=== PATIENT | male | born 1940 | race Caucasian/White ===

== ENCOUNTER 2017-06-07 11:16 | Inpatient (IN) | payer MEDICARE, MEDICAID ==
[2017-06-07] MEDS ORDERED: Sodium Chloride 0.9% 1,000 ML IV ONE (11:39)
--- NOTE | 2017-06-07 11:45 | ED Physician Chart ---
ED Chief Complaint/HPI - Patient Information Date Seen:: 06/07/17 Time Seen:: 11:25 Chief Complaint:: Scrotal Redness and Swelling History of Present Illness:: onset x 3 days of scrotal swelling and redness; no trauma, H/As, S/T, neck pain , C/P, SOB, Abd. Pain, A/N/V/D/C, fever, chills, or urinary s/s; pt's last tetanus shot: < 5 years; UTD; pt denies scrotal pain, hip pain, or flank pain Allergies:: Allergies Allergy/AdvReac Type Severity Reaction Status Date / Time No Known Allergies Allergy Verified 06/07/17 11:22 Vitals:: Vital Signs - 8 hr 06/07/17 11:22 Temp 99.6 F HR 103 RR 16 BP 135/97 O2 Sat % 94 Historian:: Patient, EMS Review:: Nurse's Note Reviewed, EMS run form Reviewed ED Review of Systems - Review of Systems General/Constitutional: No fever, No chills, No weight loss, No weakness, No diaphoresis, No edema, No loss of appetite Skin: No skin lesions, No rash, No bruising Head: No headache, No light-headedness Eyes: No loss of vision, No pain, No diplopia ENT: No earache, No nasal drainage, No sore throat, No tinnitus Neck: No neck pain, No swelling, No thyromegaly, No stiffness, No mass noted Cardio Vascular: No chest pain, No palpitations, No PND, No orthopnea, No edema Pulmonary: No SOB, No cough, No sputum, No wheezing GI: No nausea, No vomiting, No diarrhea, No pain, No melena, No hematochezia, No constipation, No hematemesis G/U: No dysuria, No frequency, No hematuria, No nacturia Musculoskeletal: No bone or joint pain, No back pain, No muscle pain Endocrine: No polyuria, No polydipsia Psychiatric: No prior psych history, No depression, No anxiety, No suicidal ideation, No homicidal ideation, No auditory hallucination, No visual hallucination Hematopoietic: No bruising, No lymphadenopathy Allergic/Immuno: No urticaria, No angioedema Neurological: No syncope, Focal symptoms, No weakness, No paresthesia, No headache, No seizure, No dizziness, No confusion, No vertigo ED Past Medical History - Past Medical History Obtainable: Yes Past Medical History: HTN, CVA/TIA, Dyslipidemia Family History: Diabetes Melitus, HTN Social History: Non Smoker, No Alcohol, No Drug Use, Single, Care Facility Surgical History: None Psychiatricy History: None Medication: Reviewed ED Physical Exam - Physical Examination General/Constitutional: Awake, Well-developed, well-nourished, Alert, No distress, GCS 15, Non-toxic appearing, Ambulatory Head: Atraumatic Eyes: Lids, conjuctiva normal, PERRL, EOMI Skin: Nl inspection, No rash, No skin lesions, No ecchymosis, Well hydrated, No lymphadenopathy ENMT: External ears, nose nl, TM canals nl, Nasal exam nl, Lips, teeth, gums nl , Oropharynx nl, Tonsils nl Neck: Nontender, Full ROM w/o pain, No JVD, No nuchal rigidity, No bruit, No mass, No stridor Respiratory: Nl effort/Exclusion, Clear to Auscultation, No Wheeze/Rhonchi/Rales Cardio Vascular: RRR, No murmur, gallop, rubs, NL S1 S2, Carotid/Femoral/Distal pulses equal bilaterally GI: No tenderness/rebounding/guarding, No organomegaly, No hernia, Normal BS's, Nondistended, No mass/bruits, No McBurney tenderness : No CVA tenderness Other comments:: + Scrotal erythema and swelling cw Cellulitis Extremities: No tenderness or effusion, Full ROM, normal strength in all extremities, No edema, Normal digits & nails Neuro/Psych: Alert/oriented, DTR's symmetric, Normal sensory exam, Normal motor strength, Judgement/insight normal, Mood normal, Normal gait, No focal deficits Misc: Normal back, No paraspinal tenderness ED Labs/Radiology/EKG Results - Lab Results Comments:: BUN: 30; LA: 2.27 - Radiology Results Comments:: U/S: + hydroceles; + epididymitis; - EKG Interpretations EKG Time:: 12:51 Rate & Rhythm: 91; NSR Pace: LAD Comments:: non-specific st-t changes ED Septic Shock - . Is Septic Shock (SBP<90, OR Lactate>4 mmol\L) present?: No - <6hrs of presentation: Vital Signs: Vital Signs - 8 hr 06/07/17 11:22 Temp 99.6 F HR 103 RR 16 BP 135/97 O2 Sat % 94 ED Reassessment (Disposition) - Reassessment Reassessment Condition:: Improved - Diagnosis Diagnosis:: Dx: Dehydration; Cellulitis; Sepsis; Epididymitis - Aftercare/Follow up Instructions Aftercare/Follow-Up Instructions:: Counseled pt regarding lab results/diagnosis & need follow up, Counseled pt & family regarding lab results/diagnosis & need follow up - Patient Disposition Discharge/Transfer:: Acute Care w/in this hosp Accepting Physician:: Dr. Jones Time Called:: 1330 Time Responded:: 13:30 Admitted to:: Med/Surg Spoke to:: Dr. Jones Admitting Medical Physician:: Dr. Jones Condition at Disposition:: Stable, Improved
[2017-06-07 12:20] LABS: % BASOPHILS 0.1 % (0.0-2.0); % EOSINOPHILS 0.2 % (0.0-5.0); % LYMPHOCYTES 6.7 % (20.0-50.0); % MONOCYTES 8.4 % (2.0-10.0); % NEUTROPHILS 84.6 % (40.0-80.0); HEMATOCRIT 41.3 % (41.0-60); HEMOGLOBIN 13.6 gm/dL (12-16); LYMPHOCYTE ABSOLUTE 0.5 Th/cmm (1.5-3.0); MEAN CELL VOLUME 86.8 fl (80-99); MEAN CORPUSCULAR HEMOGLOBIN 28.6 pg (27.0-31.0); MEAN CORPUSCULAR HGB CONC 32.9 pg (28.0-36.0); MEAN PLATELET VOLUME 8.4 fl; MONOCYTE ABSOLUTE 0.7 Th/cmm (0.3-1.0); NEUTROPHILE ABSOLUTE 6.8 Th/cmm (1.8-8.0); PLATELET COUNT 287 Th/cmm (150-400); RED BLOOD COUNT 4.76 Mil/cmm (3.80-5.80); RED CELL DISTRIBUTION WIDTH 12.4 % (11.5-20.0)
[2017-06-07 12:21] LABS: INR 1.06 (0.5-1.4)
[2017-06-07 12:24] LABS: ALB/GLOB RATIO 1.3 (1.0-1.8); ALBUMIN 4.3 gm/dL (4.2-5.5); ALKALINE PHOSPHATASE 93 U/L (34-104); ANION GAP 15.1 (7.0-16.0); BILIRUBIN,TOTAL 0.5 mg/dL (0.3-1.0); BUN - UREA NITROGEN 30 mg/dL (7-25); CALCIUM SERUM 8.9 mg/dL (8.6-10.3); CARBON DIOXIDE 22.6 mEq/L (21.0-31.0); CHLORIDE 104 mEq/L (98-107); CREATININE - SERUM 1.5 mg/dL (0.7-1.3); CREATININE KINASE 387 U/L (30-223); GLUCOSE 112 mg/dL (70-105); POTASSIUM SERUM 3.7 mEq/L (3.5-5.1); SGOT 35 U/L (13-39); SGPT/ALT 35 U/L (7-52); SODIUM SERUM 138 mEq/L (136-145); TOTAL PROTEIN,SERUM 7.5 gm/dL (6.0-8.3)
[2017-06-07 12:52] LABS: URINE MICROSCOPIC INDICATED? YES; URINE SOURCE MIDSTREAM
[2017-06-07] MEDS ORDERED: cefTRIAXone 1 GM in Sodium Chloride 0.9% 50 ML IV ONE (12:52)
[2017-06-07 12:55] LABS: URINE BILIRUBIN SMALL (NEGATIVE); URINE BLOOD SMALL (NEGATIVE); URINE GLUCOSE (UA) NEGATIVE (NEGATIVE); URINE KETONE TRACE mg/dL (NEGATIVE); URINE LEUKOCYTE ESTERASE NEGATIVE (NEGATIVE); URINE NITRATE NEGATIVE (NEGATIVE); URINE PROTEIN 30 mg/dL (NEGATIVE); URINE UROBILINOGEN 0.2 E.U./dL (0.2 - 1.0)
[2017-06-07 12:56] LABS: URINE CLARITY HAZY (CLEAR); URINE COLOR YELLOW
[2017-06-07 13:00] LABS: URINE BACTERIA OCCASIONAL /hpf (NONE SEEN); URINE EPITHELIAL CELLS FEW /lpf (FEW); URINE RBC 0-2 /hpf (0-5); URINE WBC 0-2 /hpf (0-5)
--- NOTE | 2017-06-07 14:01 | Diagnostic Imaging Report ---
Portable chest x-ray History: Pain Allowing for portable technique the heart size is normal. No focal pulmonary parenchymal processes. No hilar or mediastinal abnormalities. Old right rib fractures noted. Impression: No acute abnormalities.
--- NOTE | 2017-06-07 14:10 | Diagnostic Imaging Report ---
Testicular/scrotal ultrasound HISTORY: Swelling The right testis is small (2.9 x 1 0.9 to 2.4 cm. No focal parenchymal lesions. Normal testicular vascular flow. Right epididymis appears normal. There appears to be generalized soft tissue swelling about the right hemiscrotum. There is a mild to moderate complex right hydrocele. In addition, there appears to be abnormal heterogeneous density extending into the right hemiscrotum that appears to exhibit motion. Exact etiology uncertain. A hernia cannot be excluded. A CT scan would provide additional assessment and evaluation. The left testis a small (2.9 x 2.4 x 1.7 cm). Complex moderate hydrocele noted. As on the right side, increased density noted within the tissues of the left hemiscrotum consistent with swelling. Also noted is heterogeneous density that appears to exhibit motion and extends into the left hemiscrotum. Etiology uncertain. This may be related to bowel and herniation. IMPRESSION: 1. Generalized soft tissue swelling about the cutaneous and subcutaneous tissues of the scrotum. 2. Moderate complex bilateral hydroceles. Findings may be associated with inflammatory sequelae. 3. Heterogeneous density that appears to extend into the right and left hemiscrotal areas with motion. Exact etiology uncertain. Changes may be related to bowel and associated with hernias. A CT scan would provide additional assessment.
[2017-06-07] MEDS ORDERED: Morphine Sulfate 2 mg/mL 1mL Syr IV PRN (20:21)
[2017-06-07] MEDS ORDERED: Piperacillin Sodium/Tazobact 3.375 gm Vial IV ONE (21:20)
[2017-06-08 06:50] LABS: % BASOPHILS 0.2 % (0.0-2.0); % EOSINOPHILS 0.1 % (0.0-5.0); % LYMPHOCYTES 10.4 % (20.0-50.0); % MONOCYTES 10.7 % (2.0-10.0); % NEUTROPHILS 78.6 % (40.0-80.0); HEMOGLOBIN 12.2 gm/dL (12-16); LYMPHOCYTE ABSOLUTE 0.7 Th/cmm (1.5-3.0); MEAN CORPUSCULAR HGB CONC 33.3 pg (28.0-36.0); MEAN PLATELET VOLUME 8.2 fl; MONOCYTE ABSOLUTE 0.8 Th/cmm (0.3-1.0); NEUTROPHILE ABSOLUTE 5.7 Th/cmm (1.8-8.0); PLATELET COUNT 240 Th/cmm (150-400); RED BLOOD COUNT 4.21 Mil/cmm (3.80-5.80); RED CELL DISTRIBUTION WIDTH 12.6 % (11.5-20.0); WHITE BLOOD COUNT 7.2 Th/cmm (4.8-10.8)
[2017-06-08 07:01] LABS: HEMATOCRIT 36.7 % (41.0-60)
[2017-06-08 07:03] LABS: ANION GAP 12.1 (7.0-16.0); BUN - UREA NITROGEN 29 mg/dL (7-25); CALCIUM SERUM 8.3 mg/dL (8.6-10.3); CARBON DIOXIDE 23.4 mEq/L (21.0-31.0); CHLORIDE 106 mEq/L (98-107); CHOLESTEROL 169 mg/dL (<200); CREATININE - SERUM 1.5 mg/dL (0.7-1.3); GLUCOSE 93 mg/dL (70-105); HDL -HIGH DENSITY LIPOPROTEIN 56 mg/dL (23-92); POTASSIUM SERUM 3.5 mEq/L (3.5-5.1); SODIUM SERUM 138 mEq/L (136-145); TRIGLYCERIDES 115 mg/dL (<150)
[2017-06-08] MEDS: Potassium Chloride 10 mEq ER Tab PO SCH (09:36)
--- NOTE | 2017-06-08 13:19 | Consultation ---
DATE OF CONSULTATION: 06/07/2017 REFERRING PHYSICIAN: Dr. Jones. REASON FOR CONSULTATION: Scrotal swelling and cellulitis. HISTORY OF PRESENT ILLNESS: The patient is 76-year-old male with a past medical history of hypertension, CVA, dyslipidemia, brought to the nursing facility for swelling, redness, and pain of scrotum, it was on the right side. The patient denies any fever or chills. On initial evaluation, the patient's temperature was 99.6 degrees Fahrenheit, it went up to 101.1 degree Fahrenheit. The patient's WBC around 8000. Lactic acid was also elevated to 2.27. Urinalysis showed mild leukoesterase and occasional bacteria. The patient is noncompliant and not giving appropriate history. The patient was started on vancomycin and Zosyn and Infectious Disease consultation was called to co-manage the case. PAST MEDICAL HISTORY: Includes CVA, hypertension, and dyslipidemia. ALLERGIES: NKDA. MEDICATIONS: As per medication reconciliation sheet. Antibiotic-morales, the patient is receiving vancomycin and Zosyn. FAMILY HISTORY: Diabetes mellitus and hypertension. SOCIAL HISTORY: The patient lives at nursing facility. No history of smoking, alcohol, or drug use. REVIEW OF SYSTEMS: GENERAL: The patient has a history of fever, no chills. HEENT: No diplopia, no photophobia, no sore throat. RESPIRATORY: No cough, no shortness of breath. CARDIOVASCULAR: No chest pain or palpitation. GASTROINTESTINAL: No nausea, no vomiting, no diarrhea, no constipation. GENITOURINARY: No dysuria. No hematuria. The patient has scrotal swelling with tenderness. MUSCULOSKELETAL: No muscle pain, no joint pain. NEUROLOGIC: No headache, no dizziness, no focal weakness. PHYSICAL EXAMINATION: VITAL SIGNS: Shows temperature is 99.4 degrees Fahrenheit, T-max is 101.1 degrees Fahrenheit, pulse 97, respirations 18, blood pressure 134/81, oxygen saturation 97%. GENERAL: The patient is comfortable, lying in the bed. Not in acute distress. HENT: Head is normocephalic, atraumatic. Oral cavity moist, pink tongue. EYES: No pallor, no icterus. PERRLA, EOMI. NECK: Supple, no JVD, no carotid bruit. Trachea in midline. CHEST: Bilateral breath sounds. No crackles or wheezing. HEART: S1, S2 within normal limit. Regular rhythm. No murmur, no gallop. ABDOMEN: Soft, nontender, nondistended. Bowel sounds present. EXTREMITIES: No cyanosis, no clubbing, no edema. NEUROLOGIC: Alert, awake, oriented x 3. Not cooperative, was confused. LABORATORY: Reviewed. WBC 8,000, Hb 13.6 platelets 287,000. Creatinine 1.5. UA Nitrite negative, leukoesterase negatuve. Scrotal US reviewed. IMPRESSION: 1. Scrotal swelling, worse on the right side. 2. Renal failure. RECOMMENDATIONS: Urology consultation called for his scrotal swelliing. Antibiotic-morales, continue vancomycin, Zosyn, and Diflucan. JOB# [id number] MTDD
--- NOTE | 2017-06-08 16:22 | History and Physical ---
History of Present Illness - HPI Vital Signs: Last Vital Signs Temp 98.3 F 06/08/17 12:00 Pulse 70 06/08/17 12:00 Resp 18 06/08/17 12:00 BP 122/74 06/08/17 12:00 Pulse Ox 93 06/08/17 12:00 Family Medical History - Family Member Mother History Unknown: Yes - Medications Home Medications: Home Medication Medication Instructions Recorded Type Potassium Chloride ER [Klor-Con] 10 meq PO DAILY 06/07/17 History Temazepam [Restoril*] 15 mg PO HS PRN MDD 15 MG 06/07/17 History amLODIPine Besylate [Norvasc*] 10 mg PO DAILY 06/07/17 History aripIPRAZOLE [Abilify*] 5 mg PO DAILY 06/07/17 History - Allergies Allergies/Adverse Reactions: Allergies Allergy/AdvReac Type Severity Reaction Status Date / Time No Known Allergies Allergy Verified 06/07/17 11:22 - Lab Results All Lab Results last 24 hours: Laboratory Results - last 24 hr 06/08/17 06/08/17 06/08/17 06:15 06:15 06:15 WBC 7.2 RBC 4.21 Hgb 12.2 Hct 36.7 L D MCV 87.0 MCH 29.0 MCHC Differential 33.3 RDW 12.6 Plt Count 240 MPV 8.2 Neutrophils % 78.6 Lymphocytes % 10.4 L Monocytes % 10.7 H Eosinophils % 0.1 Basophils % 0.2 Sodium 138 Potassium 3.5 Chloride 106 Carbon Dioxide 23.4 Anion Gap 12.1 BUN 29 H Creatinine 1.5 H Est GFR ( Amer) TNP Est GFR (Non-Af Amer) TNP BUN/Creatinine Ratio 19.3 Glucose 93 Calcium 8.3 L Triglycerides 115 Cholesterol 169 LDL Cholesterol Direct 92 HDL Cholesterol 56 TSH 0.61
--- NOTE | 2017-06-08 20:58 | Consultation ---
DATE OF CONSULTATION: UROLOGY CONSULT CHIEF COMPLAINT: The patient was seen for scrotal swelling, possible cellulitis and infection. HISTORY OF PRESENT ILLNESS: The patient is a 76-year-old gentleman who was admitted for pain and swelling and possible cellulitis of the right scrotal area. He denied fever and to me he denied pain as well. He admitted that the swelling has been going on for more than 5 years without change and has not bothered him. He did not complain of any itching or skin problems, although this is the reason for the consult. The patient denies urinary problems or history of urinary tract infections. No history of bladder, prostate, kidney or testicular surgery in the past. MEDICAL HISTORY: Positive for hypertension, hyperlipidemia and history of stroke. HOME MEDICATIONS: Abilify, potassium supplement, amlodipine, and Restoril. ALLERGIES: None listed. REVIEW OF SYSTEMS: Denied fever, weight loss, headache or seizures. No chest pain, coughing or shortness of breath. No sore throat or vision changes. Denied abdominal pain, vomiting or diarrhea. Denies scrotal pain or dysuria or hematuria. No skin rashes or joint swellings by complaint. PHYSICAL EXAMINATION: GENERAL: He is awake, alert, oriented. VITAL SIGNS: Blood pressure 122/78, temperature 98.8, heart rate 64, respirations 18, saturating 99% on room air. HEAD AND NECK: Normocephalic. Trachea central. Pupils equal and reactive. No jaundice. NECK: Thyroid and lymph nodes not palpable. Carotid bruit absent. CHEST: Symmetrical. LUNGS: Clear. No rales or rhonchi. HEART: Sounds normal, in sinus rhythm, no murmur. ABDOMEN: Soft, nontender, no organomegaly, mass, or hernia. GENITALIA: Normal male. Large right hydrocele with nonpalpable testicle. Left side is normal. Testicles without masses. Penis and meatus adequate. There is a rash in the right groin underneath the scrotum that looks like a fungal infection. RECTAL: Deferred. EXTREMITIES: No edema or lymphadenopathy. LABORATORY DATA: White count 7.2, hemoglobin 12.2. Electrolytes normal. Creatinine 1.5. Lactic acid 1.9 yesterday. Urinalysis normal. Ultrasound of the scrotum was read as hydrocele with possible hernia, not able to rule out. IMPRESSION: 1. Large right hydrocele without any evidence of cellulitis or infection. This does not require any active treatment and can be observed and followed. 2. Groin skin infection, possibly a fungal lesion. Recommend antifungal cream and further treatment as per primary care or per Dermatology. 3. History of stroke. No major changes and stable. 4. History of hypertension and hyperlipidemia, well controlled. JOB# [id number]
[2017-06-09] MEDS ORDERED: Nystatin Cream 100,000 u/gm Cream 15 gm TP SCH (09:00)
[2017-06-09] MEDS: Potassium Chloride 10 mEq ER Tab PO SCH (09:59)
[2017-06-09] MEDS: Nystatin Cream 100,000 u/gm Cream 15 gm TP SCH ×5 (10:02→16:55)
--- NOTE | 2017-06-09 14:28 | Internal Medicine Prog Note ---
Internal Medicine Subjective - Subjective Service Date: 06/09/17 Patient seen and examined:: with staff Patient is:: awake, verbal Per staff patient has:: tolerating meds Internal Medicine Objective - Results Result Diagrams: 06/08/17 06:15 06/08/17 06:15 Recent Labs: Laboratory Last Values WBC 7.2 Th/cmm (4.8-10.8) 06/08/17 06:15 RBC 4.21 Mil/cmm (3.80-5.80) 06/08/17 06:15 Hgb 12.2 gm/dL (12-16) 06/08/17 06:15 Hct 36.7 % (41.0-60) L D 06/08/17 06:15 MCV 87.0 fl (80-99) 06/08/17 06:15 MCH 29.0 pg (27.0-31.0) 06/08/17 06:15 MCHC Differential 33.3 pg (28.0-36.0) 06/08/17 06:15 RDW 12.6 % (11.5-20.0) 06/08/17 06:15 Plt Count 240 Th/cmm (150-400) 06/08/17 06:15 MPV 8.2 fl 06/08/17 06:15 Neutrophils % 78.6 % (40.0-80.0) 06/08/17 06:15 Lymphocytes % 10.4 % (20.0-50.0) L 06/08/17 06:15 Monocytes % 10.7 % (2.0-10.0) H 06/08/17 06:15 Eosinophils % 0.1 % (0.0-5.0) 06/08/17 06:15 Basophils % 0.2 % (0.0-2.0) 06/08/17 06:15 PT 11.0 SECONDS (9.5-11.5) 06/07/17 11:46 INR 1.06 (0.5-1.4) 06/07/17 11:46 PTT (Actin FS) 28.2 SECONDS (26.0-38.0) 06/07/17 11:46 Sodium 138 mEq/L (136-145) 06/08/17 06:15 Potassium 3.5 mEq/L (3.5-5.1) 06/08/17 06:15 Chloride 106 mEq/L (98-107) 06/08/17 06:15 Carbon Dioxide 23.4 mEq/L (21.0-31.0) 06/08/17 06:15 Anion Gap 12.1 (7.0-16.0) 06/08/17 06:15 BUN 29 mg/dL (7-25) H 06/08/17 06:15 Creatinine 1.5 mg/dL (0.7-1.3) H 06/08/17 06:15 Est GFR ( Amer) TNP 06/08/17 06:15 Est GFR (Non-Af Amer) TNP 06/08/17 06:15 BUN/Creatinine Ratio 19.3 06/08/17 06:15 Glucose 93 mg/dL (70-105) 06/08/17 06:15 Whole Bld Lactic Acid 1.93 mmol/L (0.60-1.99) 06/07/17 14:43 Calcium 8.3 mg/dL (8.6-10.3) L 06/08/17 06:15 Total Bilirubin 0.5 mg/dL (0.3-1.0) 06/07/17 11:46 AST 35 U/L (13-39) 06/07/17 11:46 ALT 35 U/L (7-52) 06/07/17 11:46 Alkaline Phosphatase 93 U/L (34-104) 06/07/17 11:46 Creatine Kinase 387 U/L (30-223) H 06/07/17 11:46 CK-MB (CK-2) 4.3 ng/mL (0.6-6.3) 06/07/17 11:46 Troponin I 0.03 ng/mL (0.01-0.05) 06/07/17 11:46 Total Protein 7.5 gm/dL (6.0-8.3) 06/07/17 11:46 Albumin 4.3 gm/dL (4.2-5.5) 06/07/17 11:46 Globulin 3.2 gm/dL 06/07/17 11:46 Albumin/Globulin Ratio 1.3 (1.0-1.8) 06/07/17 11:46 Triglycerides 115 mg/dL (<150) 06/08/17 06:15 Cholesterol 169 mg/dL (<200) 06/08/17 06:15 LDL Cholesterol Direct 92 mg/dL (75-193) 06/08/17 06:15 HDL Cholesterol 56 mg/dL (23-92) 06/08/17 06:15 TSH 0.61 uIU/ml (0.34-5.60) 06/08/17 06:15 Urine Source MIDSTREAM 06/07/17 12:08 Urine Color YELLOW 06/07/17 12:08 Urine Clarity HAZY (CLEAR) 06/07/17 12:08 Urine pH 5.0 (4.6 - 8.0) 06/07/17 12:08 Ur Specific [place] >= 1.030 (1.005-1.030) 06/07/17 12:08 Urine Protein 30 mg/dL (NEGATIVE) H 06/07/17 12:08 Urine Glucose (UA) NEGATIVE mg/dL (NEGATIVE) 06/07/17 12:08 Urine Ketones TRACE mg/dL (NEGATIVE) 06/07/17 12:08 Urine Blood SMALL (NEGATIVE) H 06/07/17 12:08 Urine Nitrate NEGATIVE (NEGATIVE) 06/07/17 12:08 Urine Bilirubin SMALL (NEGATIVE) H 06/07/17 12:08 Urine Urobilinogen 0.2 E.U./dL (0.2 - 1.0) 06/07/17 12:08 Ur Leukocyte Esterase NEGATIVE (NEGATIVE) 06/07/17 12:08 Urine RBC 0-2 /hpf (0-5) H 06/07/17 12:08 Urine WBC 0-2 /hpf (0-5) 06/07/17 12:08 Ur Epithelial Cells FEW /lpf (FEW) 06/07/17 12:08 Urine Bacteria OCCASIONAL /hpf (NONE SEEN) 06/07/17 12:08 - Physical Exam Vitals and I&O: Vital Signs Temp 98.7 F 06/09/17 08:00 Pulse 68 06/09/17 09:58 Resp 20 06/09/17 08:00 BP 118/76 06/09/17 09:58 Pulse Ox 98 06/09/17 08:00 Intake & Output 06/08/17 06/09/17 06/09/17 18:59 06:59 18:59 Intake Total 600 100 Balance 600 100 Weight (lbs) 147 lb 8 oz 146 lb 2 oz Intake: Oral 600 100 Other: # Voids 2 1 # Bowel Movements 1 Stool Characteristics Soft Active Medications: Current Medications Amlodipine Besylate (Norvasc) 10 mg PO DAILY [facility] Stop: 08/07/17 08:59 Last Admin: 06/09/17 09:58 Dose: 10 mg Aripiprazole (Abilify) 5 mg PO DAILY [facility] PRN Reason: Protocol Stop: 08/07/17 08:59 Last Admin: 06/09/17 10:02 Dose: 5 mg Fluconazole (Diflucan) 200 mg PO DAILY [facility] Stop: 08/07/17 08:59 Last Admin: 06/09/17 09:58 Dose: 200 mg Levofloxacin (Levaquin) 500 mg PO DAILY [facility] Stop: 08/07/17 08:59 Last Admin: 06/09/17 09:58 Dose: 500 mg Morphine Sulfate (Morphine) 1 mg IV Q2HR PRN PRN Reason: moderate pain Stop: 08/06/17 20:20 Nystatin (Mycostatin Cream) 1 appl TP BID [facility] Stop: 08/08/17 08:59 Last Admin: 06/09/17 13:08 Dose: 1 appl Ondansetron HCl (Zofran) 4 mg IV Q6H PRN PRN Reason: Nausea / Vomiting Stop: 08/06/17 20:20 Potassium Chloride (Klor-Con) 10 meq PO DAILY [facility] Stop: 08/07/17 08:59 Last Admin: 06/09/17 09:59 Dose: 10 meq Temazepam (Restoril) 15 mg PO HS PRN; Protocol PRN Reason: Anxiety Stop: 08/06/17 21:41 General: weak, alert HEENT: NC/AT, PERRLA Neck: Supple Lungs: CTAB Cardiovascular: RRR, Normal S1, Normal S2, without murmur Abdomen: soft, non-distended, positive bowel sound Extremities: other (RIGHT SIDE SCROTAL EDEMA ) Internal Medicine Assmt/Plan - Assessment Assessment: SCROTAL SWELLING RENAL FAILURE - Plan Plan: CONTINUE IVABX PER ID FOLLOW UP LABS IN AM CONTINUE CURRENT PLAN OF CARE Nutritional Asmnt/Malnutr-PDOC - Dietary Evaluation Malnutrition Findings (Please click <Entered> for more info): Nutritional Asmnt/Malnutrition Start: 06/08/17 16: 14 Text: Status: Complete Freq: Document 06/08/17 16:15 LCHENG (Rec: 06/08/17 16:27 [id number]) Nutritional Asmnt/Malnutrition Patient General Information Nutritional Screening High Risk Diagnosis cellulitis, sepsis Pertinent Medical Hx/Surgical Hx HTN, CVA/TIA, dyslipidemia Subjective Information Pt seen sitting in bed having lunch at the time of visit, alert. Pt reported good appitite, denied chewing / swallowing problem. Pt stated he likes meat, milk, eggs. Current Diet Order/ Nutrition Support low sodium 2gm Pertinent Medications levaquin, kcl Pertinent Labs 06/08 Na 138, K 3.5, Cl 106, BUN 29, Cr 1.5, Ca 8.3, Glucose 93 Nutritional Hx/Data Height 5 ft 8 in Height (Calculated Centimeters) 172.7 Current Weight (lbs) 147 lb 8 oz Weight (Calculated Kilograms) 66.9 Weight (Calculated Grams) 68038.9 [place] Body Weight 154 % [place] Body Weight 96 Body Mass Index (BMI) 22.4 Weight Status Approriate GI Symptoms GI Symptoms None Last BM no record Difficult in: None Skin Integrity/Comment: reddened to buttocks and scrotum Estimated Nutritional Goals BEE in Kcals: Using Current wt Calories/Kcals/Kg 25-30 Kcals Calculated [id number] considering Protein: Using Current wt Protein g/k-1.2 Protein Calculated 67-80 Fluid: ml 1675-2010ml (1ml/kcal) Nutritional Problem 1. Problem Problem altered nutrition related lab values Etiology renal dysfunction Signs/Symptoms: BUN 29, Cr 1.5 Malnutrition Alert Protein-Calorie Malnutrition N/A Is there a minimum of two criteria No selected? Query Text:Check all the applicable criteria. A minimum of two criteria are recommended for diagnosis of either severe or non-severe malnutrition. Intervention/Recommendation Comments 1. Continue with current diet as ordered. Encouraged PO intake. 2. Monitor PO intake, wt, labs and skin integrity 3. F/U as moderate risk in 3-5 days, 06/11-06/13 Expected Outcomes/Goals Expected Outcomes/Goals 1. PO intake to meet at least 75% of nutritional needs. 2. Wt stability, skin to remain intact, labs to approach WNL.
--- NOTE | 2017-06-09 20:55 | Progress Notes ---
DATE: 06/09/2017 UROLOGY PROGRESS NOTE SUBJECTIVE: The patient has no major complaints. Denies pain in the scrotum except for mild itching in the groin. He is tolerating his diet. OBJECTIVE: VITAL SIGNS: Temperature 97.8, heart rate 68, blood pressure 118/76. LUNGS: No rales or rhonchi. HEART: Sound sinus rhythm. ABDOMEN: Soft, nontender, nondistended, and no organomegaly. GENITALIA: Large right hydrocele. No evidence of cellulitis. SKIN: Rash in the groin unchanged consistent with most likely a fungal infection. Lab work none done today. IMPRESSION: 1. Incidental right hydrocele. No treatment indicated. 2. Groin infection, probably fungal. Continue antifungal ointment or cream. 3. Hypertension, currently stable. 4. Hyperlipidemia. No change and likely history of stroke. JOB# [id number]
--- NOTE | 2017-06-09 23:51 | Infectious Disease Prog Note ---
Infectious Disease Subjective - Review of Systems Service Date: 06/09/17 Subjective: no fever. Infectious Disease Objective - Results Result Diagrams: 06/08/17 06:15 06/08/17 06:15 Recent Labs: Laboratory Last Values WBC 7.2 Th/cmm (4.8-10.8) 06/08/17 06:15 RBC 4.21 Mil/cmm (3.80-5.80) 06/08/17 06:15 Hgb 12.2 gm/dL (12-16) 06/08/17 06:15 Hct 36.7 % (41.0-60) L D 06/08/17 06:15 MCV 87.0 fl (80-99) 06/08/17 06:15 MCH 29.0 pg (27.0-31.0) 06/08/17 06:15 MCHC Differential 33.3 pg (28.0-36.0) 06/08/17 06:15 RDW 12.6 % (11.5-20.0) 06/08/17 06:15 Plt Count 240 Th/cmm (150-400) 06/08/17 06:15 MPV 8.2 fl 06/08/17 06:15 Neutrophils % 78.6 % (40.0-80.0) 06/08/17 06:15 Lymphocytes % 10.4 % (20.0-50.0) L 06/08/17 06:15 Monocytes % 10.7 % (2.0-10.0) H 06/08/17 06:15 Eosinophils % 0.1 % (0.0-5.0) 06/08/17 06:15 Basophils % 0.2 % (0.0-2.0) 06/08/17 06:15 PT 11.0 SECONDS (9.5-11.5) 06/07/17 11:46 INR 1.06 (0.5-1.4) 06/07/17 11:46 PTT (Actin FS) 28.2 SECONDS (26.0-38.0) 06/07/17 11:46 Sodium 138 mEq/L (136-145) 06/08/17 06:15 Potassium 3.5 mEq/L (3.5-5.1) 06/08/17 06:15 Chloride 106 mEq/L (98-107) 06/08/17 06:15 Carbon Dioxide 23.4 mEq/L (21.0-31.0) 06/08/17 06:15 Anion Gap 12.1 (7.0-16.0) 06/08/17 06:15 BUN 29 mg/dL (7-25) H 06/08/17 06:15 Creatinine 1.5 mg/dL (0.7-1.3) H 06/08/17 06:15 Est GFR ( Amer) TNP 06/08/17 06:15 Est GFR (Non-Af Amer) TNP 06/08/17 06:15 BUN/Creatinine Ratio 19.3 06/08/17 06:15 Glucose 93 mg/dL (70-105) 06/08/17 06:15 Whole Bld Lactic Acid 1.93 mmol/L (0.60-1.99) 06/07/17 14:43 Calcium 8.3 mg/dL (8.6-10.3) L 06/08/17 06:15 Total Bilirubin 0.5 mg/dL (0.3-1.0) 06/07/17 11:46 AST 35 U/L (13-39) 06/07/17 11:46 ALT 35 U/L (7-52) 06/07/17 11:46 Alkaline Phosphatase 93 U/L (34-104) 06/07/17 11:46 Creatine Kinase 387 U/L (30-223) H 06/07/17 11:46 CK-MB (CK-2) 4.3 ng/mL (0.6-6.3) 06/07/17 11:46 Troponin I 0.03 ng/mL (0.01-0.05) 06/07/17 11:46 Total Protein 7.5 gm/dL (6.0-8.3) 06/07/17 11:46 Albumin 4.3 gm/dL (4.2-5.5) 06/07/17 11:46 Globulin 3.2 gm/dL 06/07/17 11:46 Albumin/Globulin Ratio 1.3 (1.0-1.8) 06/07/17 11:46 Triglycerides 115 mg/dL (<150) 06/08/17 06:15 Cholesterol 169 mg/dL (<200) 06/08/17 06:15 LDL Cholesterol Direct 92 mg/dL (75-193) 06/08/17 06:15 HDL Cholesterol 56 mg/dL (23-92) 06/08/17 06:15 TSH 0.61 uIU/ml (0.34-5.60) 06/08/17 06:15 Urine Source MIDSTREAM 06/07/17 12:08 Urine Color YELLOW 06/07/17 12:08 Urine Clarity HAZY (CLEAR) 06/07/17 12:08 Urine pH 5.0 (4.6 - 8.0) 06/07/17 12:08 Ur Specific [place] >= 1.030 (1.005-1.030) 06/07/17 12:08 Urine Protein 30 mg/dL (NEGATIVE) H 06/07/17 12:08 Urine Glucose (UA) NEGATIVE mg/dL (NEGATIVE) 06/07/17 12:08 Urine Ketones TRACE mg/dL (NEGATIVE) 06/07/17 12:08 Urine Blood SMALL (NEGATIVE) H 06/07/17 12:08 Urine Nitrate NEGATIVE (NEGATIVE) 06/07/17 12:08 Urine Bilirubin SMALL (NEGATIVE) H 06/07/17 12:08 Urine Urobilinogen 0.2 E.U./dL (0.2 - 1.0) 06/07/17 12:08 Ur Leukocyte Esterase NEGATIVE (NEGATIVE) 06/07/17 12:08 Urine RBC 0-2 /hpf (0-5) H 06/07/17 12:08 Urine WBC 0-2 /hpf (0-5) 06/07/17 12:08 Ur Epithelial Cells FEW /lpf (FEW) 06/07/17 12:08 Urine Bacteria OCCASIONAL /hpf (NONE SEEN) 06/07/17 12:08 - Physical Exam Vitals and I&O: Vital Signs Temp 98.7 F 06/09/17 16:00 Pulse 72 06/09/17 16:00 Resp 16 06/09/17 16:00 BP 117/77 06/09/17 16:00 Pulse Ox 96 06/09/17 12:00 Intake & Output 06/09/17 06/09/17 06/10/17 06:59 18:59 06:59 Intake Total 100 400 Balance 100 400 Weight (lbs) 66.281 kg 66.224 kg Intake: Oral 100 400 Other: # Voids 1 5 Stool Characteristics Soft Active Medications: Current Medications Amlodipine Besylate (Norvasc) 10 mg PO DAILY [facility] Stop: 08/07/17 08:59 Last Admin: 06/09/17 09:58 Dose: 10 mg Aripiprazole (Abilify) 5 mg PO DAILY [facility] PRN Reason: Protocol Stop: 08/07/17 08:59 Last Admin: 06/09/17 10:02 Dose: 5 mg Fluconazole (Diflucan) 200 mg PO DAILY [facility] Stop: 08/07/17 08:59 Last Admin: 06/09/17 09:58 Dose: 200 mg Levofloxacin (Levaquin) 500 mg PO DAILY [facility] Stop: 08/07/17 08:59 Last Admin: 06/09/17 09:58 Dose: 500 mg Morphine Sulfate (Morphine) 1 mg IV Q2HR PRN PRN Reason: moderate pain Stop: 08/06/17 20:20 Nystatin (Mycostatin Cream) 1 appl TP BID [facility] Stop: 08/08/17 08:59 Last Admin: 06/09/17 16:55 Dose: Not Given Ondansetron HCl (Zofran) 4 mg IV Q6H PRN PRN Reason: Nausea / Vomiting Stop: 08/06/17 20:20 Potassium Chloride (Klor-Con) 10 meq PO DAILY [facility] Stop: 08/07/17 08:59 Last Admin: 06/09/17 09:59 Dose: 10 meq Temazepam (Restoril) 15 mg PO HS PRN; Protocol PRN Reason: Anxiety Stop: 08/06/17 21:41 General: no acute distress, well developed, well nourished HEENT: atraumatic, normocephalic, PERRLA Neck: supple, no thyromegaly Cardiovascular: S1S2, regular Lungs: clear to auscultation bilaterally, clear to percussion Abdomen: soft, other (right scrotal swelling.), no tender, no distended Extremities: no cyanosis, no clubbing, no edema Neurological: awake, alert, oriented Skin: intact Infectious Disease Assmt/Plan - Assessment Assessment: 1. Right scrotal swelling. hydrocele. 2. tinea cruris - Plan Plan: CPM Nutritional Asmnt/Malnutr-PDOC - Dietary Evaluation Malnutrition Findings (Please click <Entered> for more info): Nutritional Asmnt/Malnutrition Start: 01/03/18 16: 14 Text: Status: Complete Freq: Document 06/08/17 16:15 LCHENG (Rec: 06/08/17 16:27 LCAYANAG [email or web address]) Nutritional Asmnt/Malnutrition Patient General Information Nutritional Screening High Risk Diagnosis cellulitis, sepsis Pertinent Medical Hx/Surgical Hx HTN, CVA/TIA, dyslipidemia Subjective Information Pt seen sitting in bed having lunch at the time of visit, alert. Pt reported good appitite, denied chewing / swallowing problem. Pt stated he likes meat, milk, eggs. Current Diet Order/ Nutrition Support low sodium 2gm Pertinent Medications levaquin, kcl Pertinent Labs 06/08 Na 138, K 3.5, Cl 106, BUN 29, Cr 1.5, Ca 8.3, Glucose 93 Nutritional Hx/Data Height 1.73 m Height (Calculated Centimeters) 172.7 Current Weight (lbs) 66.905 kg Weight (Calculated Kilograms) 66.9 Weight (Calculated Grams) 08265.9 [place] Body Weight 154 % [place] Body Weight 96 Body Mass Index (BMI) 22.4 Weight Status Approriate GI Symptoms GI Symptoms None Last BM no record Difficult in: None Skin Integrity/Comment: reddened to buttocks and scrotum Estimated Nutritional Goals BEE in Kcals: Using Current wt Calories/Kcals/Kg 25-30 Kcals Calculated 7843-5197 considering Protein: Using Current wt Protein g/k-1.2 Protein Calculated 67-80 Fluid: ml 1675-2010ml (1ml/kcal) Nutritional Problem 1. Problem Problem altered nutrition related lab values Etiology renal dysfunction Signs/Symptoms: BUN 29, Cr 1.5 Malnutrition Alert Protein-Calorie Malnutrition N/A Is there a minimum of two criteria No selected? Query Text:Check all the applicable criteria. A minimum of two criteria are recommended for diagnosis of either severe or non-severe malnutrition. Intervention/Recommendation Comments 1. Continue with current diet as ordered. Encouraged PO intake. 2. Monitor PO intake, wt, labs and skin integrity 3. F/U as moderate risk in 3-5 days, 06/11-06/13 Expected Outcomes/Goals Expected Outcomes/Goals 1. PO intake to meet at least 75% of nutritional needs. 2. Wt stability, skin to remain intact, labs to approach WNL.
[2017-06-10] MEDS: Potassium Chloride 10 mEq ER Tab PO SCH (09:11)
[2017-06-10] MEDS: Nystatin Cream 100,000 u/gm Cream 15 gm TP SCH (09:12)
--- NOTE | 2017-06-10 12:17 | Internal Medicine Prog Note ---
Internal Medicine Subjective - Subjective Service Date: 06/10/17 Patient is:: awake, verbal Per staff patient has:: tolerating meds Internal Medicine Objective - Results Result Diagrams: 06/08/17 06:15 06/08/17 06:15 Recent Labs: Laboratory Last Values WBC 7.2 Th/cmm (4.8-10.8) 06/08/17 06:15 RBC 4.21 Mil/cmm (3.80-5.80) 06/08/17 06:15 Hgb 12.2 gm/dL (12-16) 06/08/17 06:15 Hct 36.7 % (41.0-60) L D 06/08/17 06:15 MCV 87.0 fl (80-99) 06/08/17 06:15 MCH 29.0 pg (27.0-31.0) 06/08/17 06:15 MCHC Differential 33.3 pg (28.0-36.0) 06/08/17 06:15 RDW 12.6 % (11.5-20.0) 06/08/17 06:15 Plt Count 240 Th/cmm (150-400) 06/08/17 06:15 MPV 8.2 fl 06/08/17 06:15 Neutrophils % 78.6 % (40.0-80.0) 06/08/17 06:15 Lymphocytes % 10.4 % (20.0-50.0) L 06/08/17 06:15 Monocytes % 10.7 % (2.0-10.0) H 06/08/17 06:15 Eosinophils % 0.1 % (0.0-5.0) 06/08/17 06:15 Basophils % 0.2 % (0.0-2.0) 06/08/17 06:15 PT 11.0 SECONDS (9.5-11.5) 06/07/17 11:46 INR 1.06 (0.5-1.4) 06/07/17 11:46 PTT (Actin FS) 28.2 SECONDS (26.0-38.0) 06/07/17 11:46 Sodium 138 mEq/L (136-145) 06/08/17 06:15 Potassium 3.5 mEq/L (3.5-5.1) 06/08/17 06:15 Chloride 106 mEq/L (98-107) 06/08/17 06:15 Carbon Dioxide 23.4 mEq/L (21.0-31.0) 06/08/17 06:15 Anion Gap 12.1 (7.0-16.0) 06/08/17 06:15 BUN 29 mg/dL (7-25) H 06/08/17 06:15 Creatinine 1.5 mg/dL (0.7-1.3) H 06/08/17 06:15 Est GFR ( Amer) TNP 06/08/17 06:15 Est GFR (Non-Af Amer) TNP 06/08/17 06:15 BUN/Creatinine Ratio 19.3 06/08/17 06:15 Glucose 93 mg/dL (70-105) 06/08/17 06:15 Whole Bld Lactic Acid 1.93 mmol/L (0.60-1.99) 06/07/17 14:43 Calcium 8.3 mg/dL (8.6-10.3) L 06/08/17 06:15 Total Bilirubin 0.5 mg/dL (0.3-1.0) 06/07/17 11:46 AST 35 U/L (13-39) 06/07/17 11:46 ALT 35 U/L (7-52) 06/07/17 11:46 Alkaline Phosphatase 93 U/L (34-104) 06/07/17 11:46 Creatine Kinase 387 U/L (30-223) H 06/07/17 11:46 CK-MB (CK-2) 4.3 ng/mL (0.6-6.3) 06/07/17 11:46 Troponin I 0.03 ng/mL (0.01-0.05) 06/07/17 11:46 Total Protein 7.5 gm/dL (6.0-8.3) 06/07/17 11:46 Albumin 4.3 gm/dL (4.2-5.5) 06/07/17 11:46 Globulin 3.2 gm/dL 06/07/17 11:46 Albumin/Globulin Ratio 1.3 (1.0-1.8) 06/07/17 11:46 Triglycerides 115 mg/dL (<150) 06/08/17 06:15 Cholesterol 169 mg/dL (<200) 06/08/17 06:15 LDL Cholesterol Direct 92 mg/dL (75-193) 06/08/17 06:15 HDL Cholesterol 56 mg/dL (23-92) 06/08/17 06:15 TSH 0.61 uIU/ml (0.34-5.60) 06/08/17 06:15 Urine Source MIDSTREAM 06/07/17 12:08 Urine Color YELLOW 06/07/17 12:08 Urine Clarity HAZY (CLEAR) 06/07/17 12:08 Urine pH 5.0 (4.6 - 8.0) 06/07/17 12:08 Ur Specific [place] >= 1.030 (1.005-1.030) 06/07/17 12:08 Urine Protein 30 mg/dL (NEGATIVE) H 06/07/17 12:08 Urine Glucose (UA) NEGATIVE mg/dL (NEGATIVE) 06/07/17 12:08 Urine Ketones TRACE mg/dL (NEGATIVE) 06/07/17 12:08 Urine Blood SMALL (NEGATIVE) H 06/07/17 12:08 Urine Nitrate NEGATIVE (NEGATIVE) 06/07/17 12:08 Urine Bilirubin SMALL (NEGATIVE) H 06/07/17 12:08 Urine Urobilinogen 0.2 E.U./dL (0.2 - 1.0) 06/07/17 12:08 Ur Leukocyte Esterase NEGATIVE (NEGATIVE) 06/07/17 12:08 Urine RBC 0-2 /hpf (0-5) H 06/07/17 12:08 Urine WBC 0-2 /hpf (0-5) 06/07/17 12:08 Ur Epithelial Cells FEW /lpf (FEW) 06/07/17 12:08 Urine Bacteria OCCASIONAL /hpf (NONE SEEN) 06/07/17 12:08 - Physical Exam Vitals and I&O: Vital Signs Temp 98.7 F 06/10/17 04:00 Pulse 88 06/10/17 09:11 Resp 20 06/10/17 08:00 BP 129/87 06/10/17 09:11 Pulse Ox 97 06/10/17 04:00 Intake & Output 06/09/17 06/10/17 06/10/17 18:59 06:59 18:59 Intake Total 400 100 Balance 400 100 Weight (lbs) 146 lb 146 lb Intake: Oral 400 100 Other: # Voids 5 3 Stool Characteristics Formed Hard Active Medications: Current Medications Amlodipine Besylate (Norvasc) 10 mg PO DAILY [facility] Stop: 08/07/17 08:59 Last Admin: 06/10/17 09:11 Dose: 10 mg Aripiprazole (Abilify) 5 mg PO DAILY [facility] PRN Reason: Protocol Stop: 08/07/17 08:59 Last Admin: 06/10/17 09:10 Dose: 5 mg Fluconazole (Diflucan) 200 mg PO DAILY [facility] Stop: 08/07/17 08:59 Last Admin: 06/10/17 09:10 Dose: 200 mg Levofloxacin (Levaquin) 500 mg PO DAILY [facility] Stop: 08/07/17 08:59 Last Admin: 06/10/17 09:10 Dose: 500 mg Morphine Sulfate (Morphine) 1 mg IV Q2HR PRN PRN Reason: moderate pain Stop: 08/06/17 20:20 Nystatin (Mycostatin Cream) 1 appl TP BID [facility] Stop: 08/08/17 08:59 Last Admin: 06/10/17 09:12 Dose: 1 appl Ondansetron HCl (Zofran) 4 mg IV Q6H PRN PRN Reason: Nausea / Vomiting Stop: 08/06/17 20:20 Potassium Chloride (Klor-Con) 10 meq PO DAILY [facility] Stop: 08/07/17 08:59 Last Admin: 06/10/17 09:11 Dose: 10 meq Temazepam (Restoril) 15 mg PO HS PRN; Protocol PRN Reason: Anxiety Stop: 08/06/17 21:41 General: weak, alert HEENT: NC/AT, PERRLA Neck: Supple Lungs: CTAB Cardiovascular: RRR, Normal S1, Normal S2, without murmur Abdomen: soft, non-distended, positive bowel sound Extremities: other (RIGHT SIDE SCROTAL EDEMA ) Internal Medicine Assmt/Plan - Assessment Assessment: SCROTAL SWELLING RENAL FAILURE - Plan Plan: CONTINUE IVABX PER ID FOLLOW UP LABS IN AM CONTINUE CURRENT PLAN OF CARE Nutritional Asmnt/Malnutr-PDOC - Dietary Evaluation Malnutrition Findings (Please click <Entered> for more info): Nutritional Asmnt/Malnutrition Start: 06/08/17 16: 14 Text: Status: Complete Freq: Document 06/08/17 16:15 LCHENG (Rec: 06/08/17 16:27 LCHENG [email or web address]) Nutritional Asmnt/Malnutrition Patient General Information Nutritional Screening High Risk Diagnosis cellulitis, sepsis Pertinent Medical Hx/Surgical Hx HTN, CVA/TIA, dyslipidemia Subjective Information Pt seen sitting in bed having lunch at the time of visit, alert. Pt reported good appitite, denied chewing / swallowing problem. Pt stated he likes meat, milk, eggs. Current Diet Order/ Nutrition Support low sodium 2gm Pertinent Medications levaquin, kcl Pertinent Labs 06/08 Na 138, K 3.5, Cl 106, BUN 29, Cr 1.5, Ca 8.3, Glucose 93 Nutritional Hx/Data Height 5 ft 8 in Height (Calculated Centimeters) 172.7 Current Weight (lbs) 147 lb 8 oz Weight (Calculated Kilograms) 66.9 Weight (Calculated Grams) 50174.9 [place] Body Weight 154 % [place] Body Weight 96 Body Mass Index (BMI) 22.4 Weight Status Approriate GI Symptoms GI Symptoms None Last BM no record Difficult in: None Skin Integrity/Comment: reddened to buttocks and scrotum Estimated Nutritional Goals BEE in Kcals: Using Current wt Calories/Kcals/Kg 25-30 Kcals Calculated 5676-4612 considering Protein: Using Current wt Protein g/k-1.2 Protein Calculated 67-80 Fluid: ml 1675-2010ml (1ml/kcal) Nutritional Problem 1. Problem Problem altered nutrition related lab values Etiology renal dysfunction Signs/Symptoms: BUN 29, Cr 1.5 Malnutrition Alert Protein-Calorie Malnutrition N/A Is there a minimum of two criteria No selected? Query Text:Check all the applicable criteria. A minimum of two criteria are recommended for diagnosis of either severe or non-severe malnutrition. Intervention/Recommendation Comments 1. Continue with current diet as ordered. Encouraged PO intake. 2. Monitor PO intake, wt, labs and skin integrity 3. F/U as moderate risk in 3-5 days, 06/11-06/13 Expected Outcomes/Goals Expected Outcomes/Goals 1. PO intake to meet at least 75% of nutritional needs. 2. Wt stability, skin to remain intact, labs to approach WNL.
--- NOTE | 2017-06-10 15:06 | Infectious Disease Prog Note ---
Infectious Disease Subjective - Review of Systems Service Date: 06/10/17 Subjective: no fever. Infectious Disease Objective - Results Result Diagrams: 06/08/17 06:15 06/08/17 06:15 Recent Labs: Laboratory Last Values WBC 7.2 Th/cmm (4.8-10.8) 06/08/17 06:15 RBC 4.21 Mil/cmm (3.80-5.80) 06/08/17 06:15 Hgb 12.2 gm/dL (12-16) 06/08/17 06:15 Hct 36.7 % (41.0-60) L D 06/08/17 06:15 MCV 87.0 fl (80-99) 06/08/17 06:15 MCH 29.0 pg (27.0-31.0) 06/08/17 06:15 MCHC Differential 33.3 pg (28.0-36.0) 06/08/17 06:15 RDW 12.6 % (11.5-20.0) 06/08/17 06:15 Plt Count 240 Th/cmm (150-400) 06/08/17 06:15 MPV 8.2 fl 06/08/17 06:15 Neutrophils % 78.6 % (40.0-80.0) 06/08/17 06:15 Lymphocytes % 10.4 % (20.0-50.0) L 06/08/17 06:15 Monocytes % 10.7 % (2.0-10.0) H 06/08/17 06:15 Eosinophils % 0.1 % (0.0-5.0) 06/08/17 06:15 Basophils % 0.2 % (0.0-2.0) 06/08/17 06:15 PT 11.0 SECONDS (9.5-11.5) 06/07/17 11:46 INR 1.06 (0.5-1.4) 06/07/17 11:46 PTT (Actin FS) 28.2 SECONDS (26.0-38.0) 06/07/17 11:46 Sodium 138 mEq/L (136-145) 06/08/17 06:15 Potassium 3.5 mEq/L (3.5-5.1) 06/08/17 06:15 Chloride 106 mEq/L (98-107) 06/08/17 06:15 Carbon Dioxide 23.4 mEq/L (21.0-31.0) 06/08/17 06:15 Anion Gap 12.1 (7.0-16.0) 06/08/17 06:15 BUN 29 mg/dL (7-25) H 06/08/17 06:15 Creatinine 1.5 mg/dL (0.7-1.3) H 06/08/17 06:15 Est GFR ( Amer) TNP 06/08/17 06:15 Est GFR (Non-Af Amer) TNP 06/08/17 06:15 BUN/Creatinine Ratio 19.3 06/08/17 06:15 Glucose 93 mg/dL (70-105) 06/08/17 06:15 Whole Bld Lactic Acid 1.93 mmol/L (0.60-1.99) 06/07/17 14:43 Calcium 8.3 mg/dL (8.6-10.3) L 06/08/17 06:15 Total Bilirubin 0.5 mg/dL (0.3-1.0) 06/07/17 11:46 AST 35 U/L (13-39) 06/07/17 11:46 ALT 35 U/L (7-52) 06/07/17 11:46 Alkaline Phosphatase 93 U/L (34-104) 06/07/17 11:46 Creatine Kinase 387 U/L (30-223) H 06/07/17 11:46 CK-MB (CK-2) 4.3 ng/mL (0.6-6.3) 06/07/17 11:46 Troponin I 0.03 ng/mL (0.01-0.05) 06/07/17 11:46 Total Protein 7.5 gm/dL (6.0-8.3) 06/07/17 11:46 Albumin 4.3 gm/dL (4.2-5.5) 06/07/17 11:46 Globulin 3.2 gm/dL 06/07/17 11:46 Albumin/Globulin Ratio 1.3 (1.0-1.8) 06/07/17 11:46 Triglycerides 115 mg/dL (<150) 06/08/17 06:15 Cholesterol 169 mg/dL (<200) 06/08/17 06:15 LDL Cholesterol Direct 92 mg/dL (75-193) 06/08/17 06:15 HDL Cholesterol 56 mg/dL (23-92) 06/08/17 06:15 TSH 0.61 uIU/ml (0.34-5.60) 06/08/17 06:15 Urine Source MIDSTREAM 06/07/17 12:08 Urine Color YELLOW 06/07/17 12:08 Urine Clarity HAZY (CLEAR) 06/07/17 12:08 Urine pH 5.0 (4.6 - 8.0) 06/07/17 12:08 Ur Specific [place] >= 1.030 (1.005-1.030) 06/07/17 12:08 Urine Protein 30 mg/dL (NEGATIVE) H 06/07/17 12:08 Urine Glucose (UA) NEGATIVE mg/dL (NEGATIVE) 06/07/17 12:08 Urine Ketones TRACE mg/dL (NEGATIVE) 06/07/17 12:08 Urine Blood SMALL (NEGATIVE) H 06/07/17 12:08 Urine Nitrate NEGATIVE (NEGATIVE) 06/07/17 12:08 Urine Bilirubin SMALL (NEGATIVE) H 06/07/17 12:08 Urine Urobilinogen 0.2 E.U./dL (0.2 - 1.0) 06/07/17 12:08 Ur Leukocyte Esterase NEGATIVE (NEGATIVE) 06/07/17 12:08 Urine RBC 0-2 /hpf (0-5) H 06/07/17 12:08 Urine WBC 0-2 /hpf (0-5) 06/07/17 12:08 Ur Epithelial Cells FEW /lpf (FEW) 06/07/17 12:08 Urine Bacteria OCCASIONAL /hpf (NONE SEEN) 06/07/17 12:08 - Physical Exam Vitals and I&O: Vital Signs Temp 98.4 F 06/10/17 12:43 Pulse 71 06/10/17 12:43 Resp 20 06/10/17 12:43 BP 121/70 06/10/17 12:43 Pulse Ox 90 06/10/17 12:43 Intake & Output 06/09/17 06/10/17 06/10/17 18:59 06:59 18:59 Intake Total 400 100 250 Balance 400 100 250 Weight (lbs) 66.224 kg 66.224 kg 66.224 kg Intake: Oral 400 100 250 Other: # Voids 5 3 2 # Bowel Movements 1 Stool Characteristics Formed Hard General: no acute distress, well developed, well nourished HEENT: atraumatic, normocephalic, PERRLA, EOMI, moist mucous membrane Neck: supple, no thyromegaly Cardiovascular: S1S2, regular Lungs: clear to auscultation bilaterally, clear to percussion Abdomen: soft, no tender, no distended, no mass Extremities: no cyanosis, no clubbing Neurological: awake, alert, oriented Infectious Disease Assmt/Plan - Assessment Assessment: 1. Right scrotal swelling. hydrocele. 2. tinea cruris - Plan Plan: CPM Nutritional Asmnt/Malnutr-PDOC - Dietary Evaluation Malnutrition Findings (Please click <Entered> for more info): Nutritional Asmnt/Malnutrition Start: 06/08/17 16: 14 Text: Status: Complete Freq: Document 06/08/17 16:15 LCHENG (Rec: 06/08/17 16:27 LCHENG [email or web address]) Nutritional Asmnt/Malnutrition Patient General Information Nutritional Screening High Risk Diagnosis cellulitis, sepsis Pertinent Medical Hx/Surgical Hx HTN, CVA/TIA, dyslipidemia Subjective Information Pt seen sitting in bed having lunch at the time of visit, alert. Pt reported good appitite, denied chewing / swallowing problem. Pt stated he likes meat, milk, eggs. Current Diet Order/ Nutrition Support low sodium 2gm Pertinent Medications levaquin, kcl Pertinent Labs 06/08 Na 138, K 3.5, Cl 106, BUN 29, Cr 1.5, Ca 8.3, Glucose 93 Nutritional Hx/Data Height 1.73 m Height (Calculated Centimeters) 172.7 Current Weight (lbs) 66.905 kg Weight (Calculated Kilograms) 66.9 Weight (Calculated Grams) 13140.9 [place] Body Weight 154 % [place] Body Weight 96 Body Mass Index (BMI) 22.4 Weight Status Approriate GI Symptoms GI Symptoms None Last BM no record Difficult in: None Skin Integrity/Comment: reddened to buttocks and scrotum Estimated Nutritional Goals BEE in Kcals: Using Current wt Calories/Kcals/Kg 25-30 Kcals Calculated 1098-3377 considering Protein: Using Current wt Protein g/k-1.2 Protein Calculated 67-80 Fluid: ml 1674-2009ml (1ml/kcal) Nutritional Problem 1. Problem Problem altered nutrition related lab values Etiology renal dysfunction Signs/Symptoms: BUN 29, Cr 1.5 Malnutrition Alert Protein-Calorie Malnutrition N/A Is there a minimum of two criteria No selected? Query Text:Check all the applicable criteria. A minimum of two criteria are recommended for diagnosis of either severe or non-severe malnutrition. Intervention/Recommendation Comments 1. Continue with current diet as ordered. Encouraged PO intake. 2. Monitor PO intake, wt, labs and skin integrity 3. F/U as moderate risk in 3-5 days, 06/11-06/13 Expected Outcomes/Goals Expected Outcomes/Goals 1. PO intake to meet at least 75% of nutritional needs. 2. Wt stability, skin to remain intact, labs to approach WNL.
--- NOTE | 2017-06-11 01:50 | Progress Notes ---
DATE: 06/10/2017 UROLOGY PROGRESS NOTE SUBJECTIVE: The patient was seen earlier and was getting ready to go home. Dictation was done later. He has improved significantly since admission with the groin rash getting much better, but the hydrocele or the scrotal mass remaining the same as this would require surgical treatment. He has responded to nystatin powder locally and Diflucan orally. OBJECTIVE: On exam, blood pressure 121/70, temperature 98.4, heart rate 71, saturation 90%. Abdomen soft, nontender, nondistended. Bladder not palpable. Extremities, no edema. Right hydrocele unchanged, quite large, soft, nontender and groin rash improved. LABS: None was done today. IMPRESSION: 1. Right-sided hydrocele, may need elective surgery in the future if it bothers the patient. 2. Fungal groin rash, responding to local and parenteral therapy, to be followed by primary care or dermatology. 3. History of stroke versus TIA. No new recurrence and stable. 4. History of hypertension and hyperlipidemia, chronic conditions, that have not changed. JOB# [id number]
== END 2017-06-10 13:25 | disposition home or self-care (01) | DRG 872 ==
LOC: ER 11:16 → MSI 17:39
PROVIDERS: ADMIT Internal Medicine; ATTEND Internal Medicine
DX: A41.9 Sepsis, unspecified organism (principal); N17.9 Acute kidney failure, unspecified; E86.0 Dehydration; N43.3 Hydrocele, unspecified; E78.5 Hyperlipidemia, unspecified; I10 Essential (primary) hypertension; N45.1 Epididymitis; B35.6 Tinea cruris; Z91.14 Patient's other noncompliance with medication regimen; Z79.899 Other long term (current) drug therapy; Z86.73 Personal history of transient ischemic attack (TIA), and cerebral infarction without residual deficits; Z83.3 Family history of diabetes mellitus; Z82.49 Family history of ischemic heart disease and other diseases of the circulatory system
CPT/HCPCS: 36415-UA; 71010-TC; 76870-TC; 80048-TC; 80053-TC; 80061-TC; 81001-TC; 82550-TC; 82553; 83605; 84443-TC; 84484-TC; 85007-TC; 85025-TC; 85027-TC; 85610-TC; 85730-TC; 93005; J0696; J2543; J3370; J7030; Z7610

== ENCOUNTER 2018-09-12 11:45 | Inpatient (IN) | payer MEDICAID, MEDICARE ==
[2018-09-12 12:34] LABS: % BASOPHILS 0.7 % (0.0-2.0); % EOSINOPHILS 1.5 % (0.0-5.0); % LYMPHOCYTES 11.4 % (20.0-50.0); % MONOCYTES 7.6 % (2.0-10.0); % NEUTROPHILS 78.8 % (40.0-80.0); BASOPHILE ABSOLUTE 0.1 Th/cumm (0-0.2); EOSINOPHILE ABSOLUTE 0.1 Th/cmm (0.1-0.4); HEMATOCRIT 40.1 % (41.0-60); LYMPHOCYTE ABSOLUTE 1.1 Th/cmm (1.5-3.0); MEAN CELL VOLUME 84.8 fl (80-99); MEAN CORPUSCULAR HEMOGLOBIN 27.4 pg (27.0-31.0); MEAN CORPUSCULAR HGB CONC 32.4 pg (28.0-36.0); MEAN PLATELET VOLUME 8.1 fl; MONOCYTE ABSOLUTE 0.8 Th/cmm (0.3-1.0); NEUTROPHILE ABSOLUTE 7.8 Th/cmm (1.8-8.0); PLATELET COUNT 349 Th/cmm (150-400); RED BLOOD COUNT 4.73 Mil/cmm (3.80-5.80); RED CELL DISTRIBUTION WIDTH 13.4 % (11.5-20.0); WHITE BLOOD COUNT 9.9 Th/cmm (4.8-10.8)
[2018-09-12 12:48] LABS: INR 0.91 (0.5-1.4); PROTHROMBIN TIME (TEST) 9.5 SECONDS (9.5-11.5)
--- NOTE | 2018-09-12 12:58 | ED Physician Chart ---
ED Chief Complaint/HPI - Patient Information Date Seen:: 09/12/18 Time Seen:: 11:55 Chief Complaint:: Scrotal Pain History of Present Illness:: onset x 3 days of right scrotal pain and swelling; no report of trauma, H/As, neck pain, C/P, SOB, Abd. Pain, or urinary s/s Allergies:: Allergies Allergy/AdvReac Type Severity Reaction Status Date / Time No Known Allergies Allergy Verified 06/07/17 11:22 Vitals:: Vital Signs - 8 hr 09/12/18 11:56 Temp 97 F HR 77 RR 16 BP 126/72 O2 Sat % 94 Historian:: Patient, EMS Review:: Nurse's Note Reviewed, Old Chart Reviewed, EMS run form Reviewed ED Review of Systems - Review of Systems General/Constitutional: No fever, No chills, No weight loss, No weakness, No diaphoresis, No edema, No loss of appetite Skin: No skin lesions, No rash, No bruising Head: No headache, No light-headedness Eyes: No loss of vision, No pain, No diplopia ENT: No earache, No nasal drainage, No sore throat, No tinnitus Neck: No neck pain, No swelling, No thyromegaly, No stiffness, No mass noted Cardio Vascular: No chest pain, No palpitations, No PND, No orthopnea, No edema Pulmonary: No SOB, No cough, No sputum, No wheezing GI: No nausea, No vomiting, No diarrhea, No pain, No melena, No hematochezia, No constipation, No hematemesis G/U: No dysuria, No frequency, No hematuria, No nacturia Musculoskeletal: No bone or joint pain, No back pain, No muscle pain Endocrine: No polyuria, No polydipsia Psychiatric: Prior psych history, Depression, Anxiety, No suicidal ideation, No homicidal ideation, No auditory hallucination, No visual hallucination Hematopoietic: No bruising, No lymphadenopathy Allergic/Immuno: No urticaria, No angioedema Neurological: No syncope, No focal symptoms, No weakness, No paresthesia, No headache, No seizure, No dizziness, No confusion, No vertigo ED Past Medical History - Past Medical History Obtainable: Yes Past Medical History: HTN Family History: HTN Social History: Non Smoker, No Alcohol, No Drug Use, Single, Care Facility Surgical History: None Psychiatricy History: Depression Medication: Reviewed Family Medical History - Family Member Mother History Unknown: Yes Ethnicity: Unknown Living Status: Unknown Hx Family Cancer: No Hx Family Coronary Artery Disease: No Hx Family Congestive Heart Failure: No Hx Family Hypertension: Yes Hx Family Stroke: No Hx Family Diabetes: No Hx Family Seizures: No Hx Family Dementia: No Hx Family AIDS: No Hx Family HIV: No Hx Family COPD: No Hx Family Hepatitis: No Hx Family Psychiatric Problems: No Hx Family Tuberculosis: No ED Physical Exam - Physical Examination General/Constitutional: Awake, Well-developed, well-nourished, Alert, No distress, GCS 15, Non-toxic appearing, Ambulatory Head: Atraumatic Eyes: Lids, conjuctiva normal, PERRL, EOMI Skin: Nl inspection, No rash, No skin lesions, No ecchymosis, Well hydrated, No lymphadenopathy ENMT: External ears, nose nl, TM canals nl, Nasal exam nl, Lips, teeth, gums nl , Oropharynx nl, Tonsils nl Neck: Nontender, Full ROM w/o pain, No JVD, No nuchal rigidity, No bruit, No mass, No stridor Respiratory: Nl effort/Exclusion, Clear to Auscultation, No Wheeze/Rhonchi/Rales Cardio Vascular: RRR, No murmur, gallop, rubs, NL S1 S2, Carotid/Femoral/Distal pulses equal bilaterally GI: No tenderness/rebounding/guarding, No organomegaly, No hernia, Normal BS's, Nondistended, No mass/bruits, No McBurney tenderness, Rectum exam nl : No CVA tenderness Other comments:: + Scrotal Swelling and Tenderness; no cellulitis Extremities: No tenderness or effusion, Full ROM, normal strength in all extremities, No edema, Normal digits & nails Neuro/Psych: Alert/oriented, DTR's symmetric, Normal sensory exam, Normal motor strength, Judgement/insight normal, Mood normal, Normal gait, No focal deficits Misc: Normal back, No paraspinal tenderness ED Labs/Radiology/EKG Results - Lab Results Comments:: Reviewed - Radiology Results Comments:: U/S: Right Scrotal Hernia (non-strangulated) - EKG Interpretations EKG Time:: 12:43 Rate & Rhythm: 81; NSR Comments:: old ASMI; non-specific st-t changes ED Septic Shock - . Is Septic Shock (SBP<90, OR Lactate>4 mmol\L) present?: No - <6hrs of presentation: Vital Signs: Vital Signs - 8 hr 09/12/18 11:56 Temp 97 F HR 77 RR 16 BP 126/72 O2 Sat % 94 ED Reassessment (Disposition) - Reassessment Reassessment Condition:: Improved - Diagnosis Diagnosis:: Non-Strangulated Scrotal Hernia; Scrotal Pain; Pre-Renal Azotemia; Dehydration; Hypokalemia - Aftercare/Follow up Instructions Aftercare/Follow-Up Instructions:: Counseled pt regarding lab results/diagnosis & need follow up, Counseled pt & family regarding lab results/diagnosis & need follow up - Patient Disposition Discharge/Transfer:: Acute Care w/in this hosp Accepting Physician:: Dr. Jones Time Called:: [id number] Time Responded:: 13:45 Admitted to:: Telemetry Spoke to:: Dr. Jones Admitting Medical Physician:: Dr. Jones Condition at Disposition:: Stable, Improved
[2018-09-12 13:16] LABS: ALB/GLOB RATIO 1.1 (1.0-1.8); ALBUMIN 4.2 gm/dL (4.2-5.5); ALKALINE PHOSPHATASE 87 U/L (34-104); ANION GAP 17.4 (7.0-16.0); BILIRUBIN,TOTAL 0.5 mg/dL (0.3-1.0); BUN - UREA NITROGEN 35 mg/dL (7-25); CALCIUM SERUM 9.6 mg/dL (8.6-10.3); CARBON DIOXIDE 26.6 mEq/L (21.0-31.0); CHLORIDE 100 mEq/L (98-107); CREATININE - SERUM 1.5 mg/dL (0.7-1.3); CREATININE KINASE 97 U/L (30-223); GLUCOSE 111 mg/dL (70-105); SGOT 12 U/L (13-39); SGPT/ALT 12 U/L (7-52); SODIUM SERUM 141 mEq/L (136-145); TOTAL PROTEIN,SERUM 7.9 gm/dL (6.0-8.3)
[2018-09-12] MEDS ORDERED: Potassium Chloride 20 mEq ER Tab PO ONE ×2 (13:34→13:45)
[2018-09-12 14:26] LABS: TROP I < 0.01 ng/mL (0.01-0.05)
--- NOTE | 2018-09-12 14:48 | Diagnostic Imaging Report ---
Ultrasound scrotum HISTORY: Scrotal pain and swelling, on the right. Palpable abnormality of the right side COMPARISON: Scrotal ultrasound on 08/08/2018 CT abdomen and pelvis on 08/12/2018. Technique/procedure: Sonography of the scrotum and contents was performed in multiple planes. FINDINGS: The right testicle measures 2.95 x 1.7 x 2.1 cm demonstrates a mildly heterogeneous echotexture. No focal lesions. The right epididymal head measures 1.3 cm. There may be calcification of the right epididymal head. The left testicle measures 3.3 x 1.8 x 2.3 cm demonstrates a mildly heterogeneous echotexture. No focal lesions. The left epididymal head measures 1.9 cm. There is a 7 mm left epididymal head cyst. There is a small right hydrocele. Vascular flow to both testicles are noted. There is what appears to be bowel herniation into the right scrotal sac. IMPRESSION: There appears to be bowel herniation within the right scrotal sac as seen on recent CT examination on 08/12/2018. Small right hydrocele Suspect punctate right epididymal head calcifications which may be due to chronic inflammatory process 7 mm left epididymal head cyst.
[2018-09-12 18:14] VITALS: BP 138/80
[2018-09-12 22:13] LABS: URINE SOURCE MIDSTREAM
[2018-09-13 04:31] LABS: URINE BILIRUBIN NEGATIVE (NEGATIVE); URINE BLOOD NEGATIVE (NEGATIVE); URINE GLUCOSE (UA) NEGATIVE (NEGATIVE); URINE KETONE NEGATIVE (NEGATIVE); URINE LEUKOCYTE ESTERASE NEGATIVE (NEGATIVE); URINE NITRATE NEGATIVE (NEGATIVE); URINE PH 5.5 (4.6 - 8.0); URINE PROTEIN NEGATIVE (NEGATIVE); URINE UROBILINOGEN 0.2 E.U./dL (0.2 - 1.0)
[2018-09-13 04:32] LABS: URINE CLARITY CLEAR (CLEAR); URINE COLOR YELLOW; URINE MICROSCOPIC INDICATED? NO
[2018-09-13 05:34] LABS: % BASOPHILS 0.3 % (0.0-2.0); % EOSINOPHILS 3.1 % (0.0-5.0); % LYMPHOCYTES 18.9 % (20.0-50.0); % MONOCYTES 9.6 % (2.0-10.0); % NEUTROPHILS 68.1 % (40.0-80.0); EOSINOPHILE ABSOLUTE 0.2 Th/cmm (0.1-0.4); HEMOGLOBIN 11.2 gm/dL (12-16); LYMPHOCYTE ABSOLUTE 1.3 Th/cmm (1.5-3.0); MEAN CELL VOLUME 84.2 fl (80-99); MEAN CORPUSCULAR HEMOGLOBIN 27.5 pg (27.0-31.0); MEAN CORPUSCULAR HGB CONC 32.6 pg (28.0-36.0); MEAN PLATELET VOLUME 8.2 fl; MONOCYTE ABSOLUTE 0.7 Th/cmm (0.3-1.0); NEUTROPHILE ABSOLUTE 4.8 Th/cmm (1.8-8.0); PLATELET COUNT 329 Th/cmm (150-400); RED BLOOD COUNT 4.06 Mil/cmm (3.80-5.80); RED CELL DISTRIBUTION WIDTH 13.1 % (11.5-20.0)
[2018-09-13 05:38] LABS: HEMATOCRIT 34.2 % (41.0-60)
[2018-09-13 05:43] LABS: ALB/GLOB RATIO 1.2 (1.0-1.8); ALBUMIN 3.7 gm/dL (4.2-5.5); ALKALINE PHOSPHATASE 77 U/L (34-104); ANION GAP 11.9 (7.0-16.0); BILIRUBIN,TOTAL 0.4 mg/dL (0.3-1.0); BUN - UREA NITROGEN 37 mg/dL (7-25); CARBON DIOXIDE 27.9 mEq/L (21.0-31.0); CHLORIDE 104 mEq/L (98-107); CREATININE - SERUM 1.4 mg/dL (0.7-1.3); GLUCOSE 97 mg/dL (70-105); SGOT 10 U/L (13-39); SGPT/ALT 10 U/L (7-52); SODIUM SERUM 141 mEq/L (136-145); TOTAL PROTEIN,SERUM 6.8 gm/dL (6.0-8.3)
[2018-09-13 06:02] LABS: POTASSIUM SERUM 2.8 mEq/L (3.5-5.1)
[2018-09-13] MEDS ORDERED: Potassium Chloride 20 mEq ER Tab PO ONE (07:42)
--- NOTE | 2018-09-13 15:21 | History & Physical ---
ADMIT DATE: 09/12/2018 ATTENDING PHYSICIAN: Dr. Jones. CHIEF COMPLAINT: Scrotal pain. HISTORY OF PRESENT ILLNESS: This is a 77-year-old male who is a detention resident, admitted to the telemetry unit due to a 3-day history of scrotal swelling associated with pain. The patient denies any fevers at the detention. PAST MEDICAL HISTORY: Hypertension. SOCIAL HISTORY: The patient is a detention resident. PAST SURGICAL HISTORY: Unknown. MEDICATIONS: See medication list. REVIEW OF SYSTEMS: GENERAL: Denies any fever or chills. CARDIOVASCULAR: Denies chest pain. RESPIRATORY: Denies shortness of breath. GASTROINTESTINAL: Denies nausea, vomiting, abdominal pain. GENITOURINARY: Complaints of scrotal swelling. GASTROINTESTINAL: Denies nausea, vomiting, abdominal pain. All systems reviewed and negative. PHYSICAL EXAMINATION: GENERAL: The patient is well-developed, well-nourished, no apparent distress. VITAL SIGNS: Temperature 98.3, heart rate 80, blood pressure 119/66, respirations 18, O2 94%. HEENT: Head; normocephalic, atraumatic. NECK: Supple. No mass. LUNGS: Clear bilaterally. HEART: Regular rhythm. ABDOMEN: Soft, nontender. LABORATORY DATA: WBC 7.0, H and H 11.2 and 34.2, platelet of 329. Sodium 141, potassium 2.8, chloride 108, BUN 37, creatinine 1.4, albumin 3.7. ASSESSMENT: Scrotal swelling, hernia, acute dehydration, hypertension, mild protein-calorie malnutrition, severe hypokalemia. PLAN: The patient to be admitted to the telemetry unit. We will get Infectious Disease as well as Urology consultation, and Surgical consultation. We will continue to monitor this patient. JOB# [id number]
--- NOTE | 2018-09-13 18:27 | Consultation ---
Consult Note - Consult Note Service Date: 09/13/18 Referring Physician: Briana Jones Consult Note: PHYSICIAN Consultation Note: Date of Admission: 09/12/18 Purpose of Consultation: right inguinal hernia recurrent Chief Complaint: right inguinal hernia History of Present Illness: Patient KAYCEE JOSEPH was admitted to [facility] Telemetry with TESTICULAR SWELLING, HERNIA, DEHYDRATION. Past Medical History: Allergies Allergy/AdvReac Type Severity Reaction Status Date / Time No Known Allergies Allergy Verified 06/07/17 11:22 Vital Signs Temp 99.7 F 09/13/18 16:00 Pulse 77 09/13/18 16:00 Resp 18 09/13/18 16:00 BP 110/69 09/13/18 16:00 Pulse Ox 93 09/13/18 16:00 Intake & Output 09/12/18 09/13/18 09/13/18 18:59 06:59 18:59 Intake Total 240 Balance 240 Weight (lbs) 163 lb 6.4 oz 163 lb 6.4 oz 163 lb 9.6 oz Intake: Oral 240 Other: # Voids 0 3 [facility] Laboratory Results - last 24 hr 09/12/18 09/13/18 09/13/18 03:15 04:53 04:53 WBC 7.0 RBC 4.06 Hgb 11.2 L Hct 34.2 L D MCV 84.2 MCH 27.5 MCHC Differential 32.6 RDW 13.1 Plt Count 329 MPV 8.2 Neutrophils % 68.1 Lymphocytes % 18.9 L Monocytes % 9.6 Eosinophils % 3.1 Basophils % 0.3 Sodium 141 Potassium 2.8 L* Chloride 104 Carbon Dioxide 27.9 Anion Gap 11.9 BUN 37 H Creatinine 1.4 H Est GFR ( Amer) TNP Est GFR (Non-Af Amer) TNP BUN/Creatinine Ratio 26.4 Glucose 97 Calcium 9.0 Total Bilirubin 0.4 AST 10 L ALT 10 Alkaline Phosphatase 77 Total Protein 6.8 Albumin 3.7 L Globulin 3.1 Albumin/Globulin Ratio 1.2 Urine Source [place] Urine Color YELLOW Urine Clarity CLEAR Urine pH 5.5 Ur Specific [place] 1.025 Urine Protein NEGATIVE Urine Glucose (UA) NEGATIVE Urine Ketones NEGATIVE Urine Blood NEGATIVE Urine Nitrate NEGATIVE Urine Bilirubin NEGATIVE Urine Urobilinogen 0.2 Ur Leukocyte Esterase NEGATIVE Home Medication Medication Instructions Recorded Type Vitamin D 400 iu PO DAILY tab 08/14/18 Rx amLODIPine Besylate [Norvasc*] 10 mg PO DAILY tab 08/14/18 Rx aripIPRAZOLE [Abilify*] 5 mg PO DAILY tab 08/14/18 Rx Hydrochlorothiazide [Hctz*] 25 mg PO DAILY 09/12/18 History Current Medications Generic Name Dose Route Start Last Admin Trade Name Freq PRN Reason Stop Dose Admin Amlodipine Besylate 10 mg 09/13/18 09:00 09/13/18 09:02 Norvasc PO 11/12/18 08:59 10 mg DAILY LENI Administration Aripiprazole 5 mg 09/13/18 09:00 09/13/18 09:03 Abilify PO 11/12/18 08:59 5 mg DAILY LENI Administration Protocol Hydrochlorothiazide 25 mg 09/13/18 09:00 09/13/18 09:02 Hctz PO 11/12/18 08:59 25 mg DAILY LENI Administration Vitamin D 400 iu 09/13/18 09:00 09/13/18 09:02 Vitamin D PO 11/12/18 08:59 400 iu DAILY LENI Administration Review of Systems: A 12 point ROS was reviewed with the pertinent positive and negatives noted in the HPI. Social History Smoking Status Smoker, status unknown Family Medical History Family Medical History Start: 09/12/18 15: 55 Freq: ONCE Status: Active Protocol: Document 09/12/18 15:55 GYUN (Rec: 09/12/18 17:59 GYUN [id number]) Family Medical History Mother History Unknown Yes Physical Exam: General: HEENT: Neck: Cardio: Respiratory: Abdominal: soft non tender normal bowel sounds Genital/Urinary: Extremities: Neurological: Assessment: right inguinal hernia Plan: repair of right inguinal hernia with mesh reduce involved bowel possible biologic graft Signed, Maty Rutherford [id number]
[2018-09-14 06:13] LABS: % BASOPHILS 0.5 % (0.0-2.0); % EOSINOPHILS 4.1 % (0.0-5.0); % LYMPHOCYTES 20.6 % (20.0-50.0); % MONOCYTES 10.2 % (2.0-10.0); % NEUTROPHILS 64.6 % (40.0-80.0); EOSINOPHILE ABSOLUTE 0.3 Th/cmm (0.1-0.4); HEMATOCRIT 35.1 % (41.0-60); HEMOGLOBIN 11.4 gm/dL (12-16); LYMPHOCYTE ABSOLUTE 1.5 Th/cmm (1.5-3.0); MEAN CELL VOLUME 84.1 fl (80-99); MEAN CORPUSCULAR HEMOGLOBIN 27.4 pg (27.0-31.0); MEAN CORPUSCULAR HGB CONC 32.6 pg (28.0-36.0); MEAN PLATELET VOLUME 7.9 fl; MONOCYTE ABSOLUTE 0.7 Th/cmm (0.3-1.0); NEUTROPHILE ABSOLUTE 4.7 Th/cmm (1.8-8.0); PLATELET COUNT 336 Th/cmm (150-400); RED BLOOD COUNT 4.17 Mil/cmm (3.80-5.80); RED CELL DISTRIBUTION WIDTH 13.5 % (11.5-20.0); WHITE BLOOD COUNT 7.2 Th/cmm (4.8-10.8)
[2018-09-14 10:51] LABS: CHLORIDE 103 mEq/L (98-107)
[2018-09-14 10:52] LABS: ANION GAP 16.9 (7.0-16.0); BUN - UREA NITROGEN 39 mg/dL (7-25); CALCIUM SERUM 8.6 mg/dL (8.6-10.3); CREATININE - SERUM 1.4 mg/dL (0.7-1.3); GLUCOSE 87 mg/dL (70-105)
[2018-09-14 10:53] LABS: POTASSIUM SERUM 2.9 mEq/L (3.5-5.1)
[2018-09-14 10:54] LABS: SODIUM SERUM 140 mEq/L (136-145)
[2018-09-14] MEDS: Potassium Chloride 20 mEq ER Tab PO ONE ×2 (12:30→12:31)
[2018-09-14] MEDS: KCL 20mEq/100mL Premix 20 MEQ/100 ML PIGGYBACK IV SCH ×3 (15:58→20:26)
--- NOTE | 2018-09-14 22:30 | Internal Medicine Prog Note ---
Internal Medicine Subjective - Subjective Service Date: 09/14/18 Patient is:: asleep, in bed Per staff patient has:: tolerating meds Internal Medicine Objective - Results Result Diagrams: 09/14/18 05:30 09/14/18 05:30 Recent Labs: Laboratory Last Values WBC 7.2 Th/cmm (4.8-10.8) 09/14/18 05:30 RBC 4.17 Mil/cmm (3.80-5.80) 09/14/18 05:30 Hgb 11.4 gm/dL (12-16) L 09/14/18 05:30 Hct 35.1 % (41.0-60) L 09/14/18 05:30 MCV 84.1 fl (80-99) 09/14/18 05:30 MCH 27.4 pg (27.0-31.0) 09/14/18 05:30 MCHC Differential 32.6 pg (28.0-36.0) 09/14/18 05:30 RDW 13.5 % (11.5-20.0) 09/14/18 05:30 Plt Count 336 Th/cmm (150-400) 09/14/18 05:30 MPV 7.9 fl 09/14/18 05:30 Neutrophils % 64.6 % (40.0-80.0) 09/14/18 05:30 Lymphocytes % 20.6 % (20.0-50.0) 09/14/18 05:30 Monocytes % 10.2 % (2.0-10.0) H 09/14/18 05:30 Eosinophils % 4.1 % (0.0-5.0) 09/14/18 05:30 Basophils % 0.5 % (0.0-2.0) 09/14/18 05:30 PT 9.5 SECONDS (9.5-11.5) 09/12/18 12:22 INR 0.91 (0.5-1.4) 09/12/18 12:22 PTT (Actin FS) 26.7 SECONDS (26.0-38.0) 09/12/18 12:22 Sodium 140 mEq/L (136-145) 09/14/18 05:30 Potassium 2.9 mEq/L (3.5-5.1) L* 09/14/18 05:30 Chloride 103 mEq/L (98-107) 09/14/18 05:30 Carbon Dioxide 23.0 mEq/L (21.0-31.0) 09/14/18 05:30 Anion Gap 16.9 (7.0-16.0) H 09/14/18 05:30 BUN 39 mg/dL (7-25) H 09/14/18 05:30 Creatinine 1.4 mg/dL (0.7-1.3) H 09/14/18 05:30 Est GFR ( Amer) TNP 09/14/18 05:30 Est GFR (Non-Af Amer) TNP 09/14/18 05:30 BUN/Creatinine Ratio 27.9 09/14/18 05:30 Glucose 87 mg/dL (70-105) 09/14/18 05:30 POC Glucose 97 MG/DL (70 - 105) 09/12/18 17:48 Whole Bld Lactic Acid 1.67 mmol/L (0.60-1.99) 09/12/18 12:22 Calcium 8.6 mg/dL (8.6-10.3) 09/14/18 05:30 Total Bilirubin 0.4 mg/dL (0.3-1.0) 09/13/18 04:53 AST 10 U/L (13-39) L 09/13/18 04:53 ALT 10 U/L (7-52) 09/13/18 04:53 Alkaline Phosphatase 77 U/L (34-104) 09/13/18 04:53 Creatine Kinase 97 U/L (30-223) 09/12/18 12:22 Troponin I < 0.01 ng/mL (0.01-0.05) L 09/12/18 12:22 Total Protein 6.8 gm/dL (6.0-8.3) 09/13/18 04:53 Albumin 3.7 gm/dL (4.2-5.5) L 09/13/18 04:53 Globulin 3.1 gm/dL 09/13/18 04:53 Albumin/Globulin Ratio 1.2 (1.0-1.8) 09/13/18 04:53 Urine Source MIDSTREAM 09/12/18 03:15 Urine Color YELLOW 09/12/18 03:15 Urine Clarity CLEAR (CLEAR) 09/12/18 03:15 Urine pH 5.5 (4.6 - 8.0) 09/12/18 03:15 Ur Specific [place] 1.025 (1.005-1.030) 09/12/18 03:15 Urine Protein NEGATIVE mg/dL (NEGATIVE) 09/12/18 03:15 Urine Glucose (UA) NEGATIVE mg/dL (NEGATIVE) 09/12/18 03:15 Urine Ketones NEGATIVE mg/dL (NEGATIVE) 09/12/18 03:15 Urine Blood NEGATIVE (NEGATIVE) 09/12/18 03:15 Urine Nitrate NEGATIVE (NEGATIVE) 09/12/18 03:15 Urine Bilirubin NEGATIVE (NEGATIVE) 09/12/18 03:15 Urine Urobilinogen 0.2 E.U./dL (0.2 - 1.0) 09/12/18 03:15 Ur Leukocyte Esterase NEGATIVE (NEGATIVE) 09/12/18 03:15 - Physical Exam Vitals and I&O: Vital Signs Temp 98.6 F 09/14/18 20:00 Pulse 82 09/14/18 20:00 Resp 18 09/14/18 20:00 BP 127/74 09/14/18 20:00 Pulse Ox 91 09/14/18 20:00 Intake & Output 09/14/18 09/14/18 09/15/18 06:59 18:59 06:59 Intake Total 300 100 100 Output Total 0 Balance 300 100 100 Weight (lbs) 73.936 kg 73.936 kg Intake: Intake, IV Amount 100 100 KCL 20mEq/100mL Premix 20 100 100 meq In 100 ml @ 50 mls/ hr IV Q2H [facility] Rx#: [id number] Oral 300 Output: Stool 0 Other: # Voids 2 Weight Source Bedscale Bedscale Active Medications: Current Medications Amlodipine Besylate (Norvasc) 10 mg PO DAILY [facility] Stop: 11/12/18 08:59 Last Admin: 09/14/18 09:09 Dose: 10 mg Aripiprazole (Abilify) 5 mg PO DAILY [facility]; Protocol Stop: 11/12/18 08:59 Last Admin: 09/14/18 09:10 Dose: 5 mg Hydrochlorothiazide (Hctz) 25 mg PO DAILY [facility] Stop: 11/12/18 08:59 Last Admin: 09/14/18 09:10 Dose: 25 mg Dextrose/Sodium Chloride (D5-0.45ns) 1,000 mls @ 75 mls/hr IV .[id number] [facility] Stop: 11/13/18 18:59 Vitamin D (Vitamin D) 400 iu PO DAILY LENI Stop: 11/12/18 08:59 Last Admin: 09/14/18 09:10 Dose: 400 iu General: weak HEENT: NC/AT Neck: Supple Lungs: CTAB Cardiovascular: without murmur Abdomen: non-distended Extremities: excoriation, other (scrotal swelling) Internal Medicine Assmt/Plan - Assessment Assessment: scrotal swelling hernia dehydration protein calorie malnutrition hypokalemia - Plan Plan: abx to continue per ID as per order sheet. Nutritional Asmnt/Malnutr-PDOC - Dietary Evaluation Malnutrition Findings (Please click <Entered> for more info): Nutritional Asmnt/Malnutrition Start: 09/13/18 11: 32 Text: Status: Complete Freq: Protocol: Document 09/13/18 11:32 BARAK (Rec: 09/13/18 11:40 BARAK [id number]) Nutritional Asmnt/Malnutrition Patient General Information Nutritional Screening High Risk Diagnosis testicular swelling, hernia, dehydration Pertinent Medical Hx/Surgical Hx HTN, depression Subjective Information Pt seen sleeping in bed at time of visit. Current Diet Order/ Nutrition Support regular Pertinent Medications vit D Pertinent Labs 09/13 K 2.8, BUN 37, Cr 1.4 09/12 K 3.0, BUN 35, Cr 1.5, Glucose 111 Nutritional Hx/Data Height 1.63 m Height (Calculated Centimeters) 162.6 Current Weight (lbs) 73.936 kg Weight (Calculated Kilograms) 73.9 Weight (Calculated Grams) 71191.6 [place] Body Weight 130 Body Mass Index (BMI) 27.9 Weight Status Overweight GI Symptoms GI Symptoms None Last BM not indicated Difficult in: None Skin Integrity/Comment: reddened edema to scrotum, reddened scar to left leg, scab to left elbow Estimated Nutritional Goals BEE in Kcals: Using Current wt Calories/Kcals/Kg 23-27 Kcals Calculated 7819-4411 Protein: Using Current wt Protein g/k.8 Protein Calculated 59 Fluid: ml 1702-1998ml (1ml/kcal) Nutritional Problem 1. Problem Problem altered nutrition related labs Etiology electrolytes imbalance Signs/Symptoms: K 2.8 Malnutrition Alert Is there a minimum of two criteria No selected? Query Text:Check all the applicable criteria. A minimum of two criteria are recommended for diagnosis of either severe or non-severe malnutrition. Malnutrition Related to Morbid Obesity Malnutrition related to morbid obesity No Intervention/Recommendation Comments 1. Continue with regular diet as ordered. MD to replace electrolyts as needed. 2. Monitor PO intake, wt, labs and skin integrity 3. F/U as moderate risk in 3-5 days Expected Outcomes/Goals Expected Outcomes/Goals 1. PO intake to meet at least 75% of nutritional needs. 2. Wt stability, skin to remain intact, labs to approach WNL.
[2018-09-14] MEDS: D5-0.45NS 1,000 ML IV SCH (22:44)
--- NOTE | 2018-09-14 23:33 | Consultation ---
DATE OF CONSULTATION: 09/14/2018 INFECTIOUS DISEASE CONSULTATION REFERRING PHYSICIAN: Dr. Jones REASON FOR CONSULTATION: Scrotal swelling. HISTORY OF PRESENT ILLNESS: The patient is a 77-year-old male with past medical history of hypertension, presented to the ER for swelling of the right scrotum for the last 3 days with some pain. He denies any fever or chills. On initial evaluation, the patient's temperature was 97 degrees Fahrenheit and WBC count was 9900. Blood cultures are done. The patient is not receiving any antibiotic. Ultrasound of the right scrotum showed hernia. ID consult was called for assessment regarding scrotal cellulitis. ALLERGIES: NKDA. PAST MEDICAL HISTORY: Hypertension. MEDICATIONS: As per medication reconciliation sheet. SOCIAL HISTORY: The patient lives in a nursing facility. No history of smoking, alcohol or drug use. PAST SURGICAL HISTORY: Unknown. REVIEW OF SYSTEMS: GENERAL: The patient denies any fever or chills. HEENT: The patient denies diplopia, photophobia, or sore throat. RESPIRATORY: Denies any cough or shortness of breath. CARDIOVASCULAR: The patient denies chest pain or palpitation or swelling of the legs. GASTROINTESTINAL: Denies nausea, vomiting, diarrhea, or constipation. GENITOURINARY: No dysuria. The patient has right-sided painful scrotal swelling. CENTRAL NERVOUS SYSTEM: No headache, no dizziness, no focal weakness. PHYSICAL EXAMINATION: CURRENT VITAL SIGNS: Show temperature is 96.75, pulse 80, respirations 18, blood pressure 136/85. GENERAL: The patient is comfortable, lying in the bed, not in any acute distress. HEENT: Head is normocephalic, atraumatic. Oral cavity is moist, pink tongue. NECK: Supple. No JVD, no carotid bruit. Trachea in midline. CHEST: Bilateral breath sounds. No crackles or wheezing. CARDIOVASCULAR: S1 and S2 within normal limits. Regular rhythm. No murmur, no gallop. ABDOMEN: Soft, nontender, nondistended. Bowel sounds present. GENITOURINARY: The patient's ____ normal. The patient has scrotal swelling on the right side. No redness, no discharge, and no pus. EXTREMITIES: No cyanosis, no clubbing, no edema. NEUROLOGIC: Alert, awake, and oriented x 3. LABORATORY AND DIAGNOSTIC DATA: Current lab shows WBC count 7200, hemoglobin 11.4, hematocrit 35.1, platelets are 336,000, neutrophils 65%. Sodium 140, potassium 2.9, chloride 103, bicarbonate is 23, BUN is 39, creatinine 1.5, and glucose is 87. Urinalysis shows negative nitrite, negative leukocyte esterase. Blood culture 2 sets are negative. Scrotal ultrasound showed small hydrocele in the right scrotal sac same as seen on 08/12/2018. IMPRESSION: 1. Scrotal swelling, most likely secondary to inguinal hernia. 2. Hypertension. 3. Azotemia, most likely due to dehydration. 4. Hypokalemia. We will replace with potassium IV as the patient has refused taking p.o. RECOMMENDATIONS: We will continue same management. There is no need of any antibiotic. Further care per surgical team and Dr. Rutherford. Thank you Dr. Jones for involving me in taking care of this patient. JOB# [id number]
[2018-09-15 06:17] LABS: % BASOPHILS 0.3 % (0.0-2.0); % EOSINOPHILS 4.7 % (0.0-5.0); % LYMPHOCYTES 21.3 % (20.0-50.0); % MONOCYTES 8.3 % (2.0-10.0); % NEUTROPHILS 65.4 % (40.0-80.0); EOSINOPHILE ABSOLUTE 0.4 Th/cmm (0.1-0.4); HEMATOCRIT 38.5 % (41.0-60); HEMOGLOBIN 12.4 gm/dL (12-16); LYMPHOCYTE ABSOLUTE 1.6 Th/cmm (1.5-3.0); MEAN CELL VOLUME 84.9 fl (80-99); MEAN CORPUSCULAR HEMOGLOBIN 27.4 pg (27.0-31.0); MEAN CORPUSCULAR HGB CONC 32.3 pg (28.0-36.0); MEAN PLATELET VOLUME 8.2 fl; MONOCYTE ABSOLUTE 0.6 Th/cmm (0.3-1.0); PLATELET COUNT 366 Th/cmm (150-400); RED BLOOD COUNT 4.53 Mil/cmm (3.80-5.80); WHITE BLOOD COUNT 7.6 Th/cmm (4.8-10.8)
[2018-09-15 06:27] LABS: INR 0.93 (0.5-1.4); PROTHROMBIN TIME (TEST) 9.7 SECONDS (9.5-11.5)
[2018-09-15 06:37] LABS: ANION GAP 12.8 (7.0-16.0); BUN - UREA NITROGEN 32 mg/dL (7-25); CALCIUM SERUM 9.1 mg/dL (8.6-10.3); CHLORIDE 105 mEq/L (98-107); CREATININE - SERUM 1.4 mg/dL (0.7-1.3); GLUCOSE 98 mg/dL (70-105); MAGNESIUM 2.1 mg/dL (1.9-2.7); POTASSIUM SERUM 3.8 mEq/L (3.5-5.1); SODIUM SERUM 141 mEq/L (136-145)
--- NOTE | 2018-09-15 08:55 | Diagnostic Imaging Report ---
Portable chest x-ray History: Cough, preoperative Allowing for portable technique the heart size is normal. No focal pulmonary parenchymal processes. No hilar or mediastinal abnormalities. Impression: No acute abnormalities.
[2018-09-15] MEDS: D5-0.45NS 1,000 ML IV SCH (12:57)
--- NOTE | 2018-09-15 15:15 | Internal Medicine Prog Note ---
Internal Medicine Subjective - Subjective Service Date: 09/15/18 Patient seen and examined:: with staff Patient is:: asleep Patient Complaints of:: other (scrotal swelling, secondray to Inguinal hernia.) Per staff patient has:: no adverse event, no episodes of fall, tolerating meds Internal Medicine Objective - Results Result Diagrams: 09/15/18 05:40 09/15/18 05:40 Recent Labs: Laboratory Last Values WBC 7.6 Th/cmm (4.8-10.8) 09/15/18 05:40 RBC 4.53 Mil/cmm (3.80-5.80) 09/15/18 05:40 Hgb 12.4 gm/dL (12-16) 09/15/18 05:40 Hct 38.5 % (41.0-60) L 09/15/18 05:40 MCV 84.9 fl (80-99) 09/15/18 05:40 MCH 27.4 pg (27.0-31.0) 09/15/18 05:40 MCHC Differential 32.3 pg (28.0-36.0) 09/15/18 05:40 RDW 13.0 % (11.5-20.0) 09/15/18 05:40 Plt Count 366 Th/cmm (150-400) 09/15/18 05:40 MPV 8.2 fl 09/15/18 05:40 Neutrophils % 65.4 % (40.0-80.0) 09/15/18 05:40 Lymphocytes % 21.3 % (20.0-50.0) 09/15/18 05:40 Monocytes % 8.3 % (2.0-10.0) 09/15/18 05:40 Eosinophils % 4.7 % (0.0-5.0) 09/15/18 05:40 Basophils % 0.3 % (0.0-2.0) 09/15/18 05:40 PT 9.7 SECONDS (9.5-11.5) 09/15/18 05:40 INR 0.93 (0.5-1.4) 09/15/18 05:40 PTT (Actin FS) 26.9 SECONDS (26.0-38.0) 09/15/18 05:40 Sodium 141 mEq/L (136-145) 09/15/18 05:40 Potassium 3.8 mEq/L (3.5-5.1) 09/15/18 05:40 Chloride 105 mEq/L (98-107) 09/15/18 05:40 Carbon Dioxide 27.0 mEq/L (21.0-31.0) 09/15/18 05:40 Anion Gap 12.8 (7.0-16.0) 09/15/18 05:40 BUN 32 mg/dL (7-25) H 09/15/18 05:40 Creatinine 1.4 mg/dL (0.7-1.3) H 09/15/18 05:40 Est GFR ( Amer) TNP 09/15/18 05:40 Est GFR (Non-Af Amer) TNP 09/15/18 05:40 BUN/Creatinine Ratio 22.9 09/15/18 05:40 Glucose 98 mg/dL (70-105) 09/15/18 05:40 POC Glucose 92 MG/DL (70 - 105) 09/15/18 06:48 Whole Bld Lactic Acid 1.67 mmol/L (0.60-1.99) 09/12/18 12:22 Calcium 9.1 mg/dL (8.6-10.3) 09/15/18 05:40 Magnesium 2.1 mg/dL (1.9-2.7) 09/15/18 05:40 Total Bilirubin 0.4 mg/dL (0.3-1.0) 09/13/18 04:53 AST 10 U/L (13-39) L 09/13/18 04:53 ALT 10 U/L (7-52) 09/13/18 04:53 Alkaline Phosphatase 77 U/L (34-104) 09/13/18 04:53 Creatine Kinase 97 U/L (30-223) 09/12/18 12:22 Troponin I < 0.01 ng/mL (0.01-0.05) L 09/12/18 12:22 Total Protein 6.8 gm/dL (6.0-8.3) 09/13/18 04:53 Albumin 3.7 gm/dL (4.2-5.5) L 09/13/18 04:53 Globulin 3.1 gm/dL 09/13/18 04:53 Albumin/Globulin Ratio 1.2 (1.0-1.8) 09/13/18 04:53 Urine Source MIDSTREAM 09/12/18 03:15 Urine Color YELLOW 09/12/18 03:15 Urine Clarity CLEAR (CLEAR) 09/12/18 03:15 Urine pH 5.5 (4.6 - 8.0) 09/12/18 03:15 Ur Specific [place] 1.025 (1.005-1.030) 09/12/18 03:15 Urine Protein NEGATIVE mg/dL (NEGATIVE) 09/12/18 03:15 Urine Glucose (UA) NEGATIVE mg/dL (NEGATIVE) 09/12/18 03:15 Urine Ketones NEGATIVE mg/dL (NEGATIVE) 09/12/18 03:15 Urine Blood NEGATIVE (NEGATIVE) 09/12/18 03:15 Urine Nitrate NEGATIVE (NEGATIVE) 09/12/18 03:15 Urine Bilirubin NEGATIVE (NEGATIVE) 09/12/18 03:15 Urine Urobilinogen 0.2 E.U./dL (0.2 - 1.0) 09/12/18 03:15 Ur Leukocyte Esterase NEGATIVE (NEGATIVE) 09/12/18 03:15 - Physical Exam Vitals and I&O: Vital Signs Temp 97.1 F 09/15/18 12:00 Pulse 68 09/15/18 12:00 Resp 19 09/15/18 12:00 BP 122/84 09/15/18 12:00 Pulse Ox 98 09/15/18 12:00 Intake & Output 09/14/18 09/15/18 09/15/18 18:59 06:59 18:59 Intake Total 712 542 5490 Balance 874 117 5561 Weight (lbs) 73.936 kg 73.936 kg Intake: Intake, IV Amount 203 072 0598 D5-0.45NS 1,000 ml @ 75 1000 mls/hr IV .[id number] [facility] Rx #:[id number] KCL 20mEq/100mL Premix 20 100 100 meq In 100 ml @ 50 mls/ hr IV Q2H [facility] Rx#: [id number] Oral 400 Other: # Voids 2 # Bowel Movements 1 Weight Source Bedscale Bedscale Active Medications: Current Medications Amlodipine Besylate (Norvasc) 10 mg PO DAILY [facility] Stop: 11/12/18 08:59 Last Admin: 09/15/18 08:21 Dose: Not Given Aripiprazole (Abilify) 5 mg PO DAILY [facility]; Protocol Stop: 11/12/18 08:59 Last Admin: 09/15/18 08:22 Dose: Not Given Hydrochlorothiazide (Hctz) 25 mg PO DAILY [facility] Stop: 11/12/18 08:59 Last Admin: 09/15/18 08:23 Dose: Not Given Dextrose/Sodium Chloride (D5-0.45ns) 1,000 mls @ 75 mls/hr IV .[id number] [facility] Stop: 11/13/18 18:59 Last Admin: 09/15/18 12:57 Dose: 75 mls/hr Mupirocin (Bactroban Oint) 1 appl NS BID [facility] Stop: 09/19/18 17:01 Last Admin: 09/15/18 10:14 Dose: 1 appl Vitamin D (Vitamin D) 400 iu PO DAILY [facility] Stop: 11/12/18 08:59 Last Admin: 09/15/18 08:23 Dose: Not Given Physical Exam: 77 y/o male patient has hx of scrotal swelling secondary to Inguinal hernia. General: weak HEENT: NC/AT Neck: Supple Lungs: CTAB Cardiovascular: without murmur Abdomen: non-distended Extremities: excoriation, other (scrotal swelling) Neurological: alert Internal Medicine Assmt/Plan - Assessment Assessment: scrotal swelling hernia dehydration protein calorie malnutrition hypokalemia - Plan Plan: abx to continue per ID as per order sheet. Nutritional Asmnt/Malnutr-PDOC - Dietary Evaluation Malnutrition Findings (Please click <Entered> for more info): Nutritional Asmnt/Malnutrition Start: 09/13/18 11: 32 Text: Status: Complete Freq: Protocol: Document 09/13/18 11:32 LCHENG (Rec: 09/13/18 11:40 LCHENG [email or web address]) Nutritional Asmnt/Malnutrition Patient General Information Nutritional Screening High Risk Diagnosis testicular swelling, hernia, dehydration Pertinent Medical Hx/Surgical Hx HTN, depression Subjective Information Pt seen sleeping in bed at time of visit. Current Diet Order/ Nutrition Support regular Pertinent Medications vit D Pertinent Labs 09/13 K 2.8, BUN 37, Cr 1.4 09/12 K 3.0, BUN 35, Cr 1.5, Glucose 111 Nutritional Hx/Data Height 1.63 m Height (Calculated Centimeters) 162.6 Current Weight (lbs) 73.936 kg Weight (Calculated Kilograms) 73.9 Weight (Calculated Grams) 48882.6 [place] Body Weight 130 Body Mass Index (BMI) 27.9 Weight Status Overweight GI Symptoms GI Symptoms None Last BM not indicated Difficult in: None Skin Integrity/Comment: reddened edema to scrotum, reddened scar to left leg, scab to left elbow Estimated Nutritional Goals BEE in Kcals: Using Current wt Calories/Kcals/Kg 23-27 Kcals Calculated 2608-3534 Protein: Using Current wt Protein g/k.8 Protein Calculated 59 Fluid: ml 170-1997ml (1ml/kcal) Nutritional Problem 1. Problem Problem altered nutrition related labs Etiology electrolytes imbalance Signs/Symptoms: K 2.8 Malnutrition Alert Is there a minimum of two criteria No selected? Query Text:Check all the applicable criteria. A minimum of two criteria are recommended for diagnosis of either severe or non-severe malnutrition. Malnutrition Related to Morbid Obesity Malnutrition related to morbid obesity No Intervention/Recommendation Comments 1. Continue with regular diet as ordered. MD to replace electrolyts as needed. 2. Monitor PO intake, wt, labs and skin integrity 3. F/U as moderate risk in 3-5 days Expected Outcomes/Goals Expected Outcomes/Goals 1. PO intake to meet at least 75% of nutritional needs. 2. Wt stability, skin to remain intact, labs to approach WNL.
[2018-09-15] MEDS ORDERED: fentaNYL Citrate 100 mcg/2mL Vial ONE (16:43)
[2018-09-15] MEDS ORDERED: Neostigmine 10mg/10mL Vial ONE (17:22)
[2018-09-15] MEDS ORDERED: Propofol **SURGERY USE ONLY** 20 ML IV ONE (17:22)
--- NOTE | 2018-09-15 17:54 | Operative Report ---
Operative Report - Surgery Date of Surgery:: 09/15/18 Procedure:: repair of incarcerated right inguinal hernia Indication for procedure:: persistent swelling and pain in the scrotal area with discomfort Procedure consent:: consent for repair of incarcerated right inguinal hernia with possible mesh Anesthesia:: Anesthesiologist:Dr Magana Anesthesia: General Preoperative diagnosis:: incarcerated right inguinal hernia Postoperative diagnosis:: incarcerated right inguinal hernia with omentum bowel (colon and small bowel) Description of Procedure:: see op dictated report [id number]
[2018-09-15] MEDS ORDERED: Hydrocodone/APAP 5mg/325mg Tab PO PRN (18:22)
--- NOTE | 2018-09-15 19:00 | Operative Report ---
DATE OF SURGERY: 09/15/2018 PREOPERATIVE DIAGNOSIS: Presents with incarcerated right inguinal hernia. POSTOPERATIVE DIAGNOSIS: Incarcerated hernia with bowel including colon and small bowel terminal ileum with appendix in the sac, hernia sac. PROCEDURE: Reduction of incarcerated small bowel and colon, the scrotum with removal of the hernia sac, suture ligation, used to get extra-large PerFix plugs interposition from [place] and flap closure. ANESTHESIA: This was done under general anesthesia. ANESTHESIOLOGIST: Dr. Magana. TIMBER HEWER: Dr. Chavarria. DESCRIPTION OF PROCEDURE: Under general anesthesia, the patient was prepped and draped in usual sterile fashion. Incision made and brought to the external oblique fascia. The incarcerated herniated bowel was reduced, which was incarcerated and causing some degree of bowel compromise, but it was well perfused and there was no evidence of any strangulation. The sac was then suture ligated high and doubly tied. Then, we placed the extra-large PerFix plug secured to the conjoined tendon at the pubic ligament and the pubic tubercle and a flat mesh was applied over that closing the Louis fascia with 2-0 Vicryl and the skin was closed with 4-0 Vicryl subcuticular stitch. A 20 mL of Marcaine 0.25% with epinephrine was used for postoperative pain management. The patient tolerated procedure well. All instrument, sponge count, needle counts were correct. JOB# [id number]
[2018-09-15] MEDS: ceFAZolin 1 GM in Sodium Chloride 0.9% 50 ML IV SCH (21:30)
[2018-09-16] MEDS: Morphine Sulfate 2 mg/mL 1mL Syr IVP PRN ×2 (00:21→22:58)
[2018-09-16] MEDS: ceFAZolin 1 GM in Sodium Chloride 0.9% 50 ML IV SCH (05:14)
[2018-09-16 06:04] LABS: ALBUMIN 3.3 gm/dL (4.2-5.5); ALKALINE PHOSPHATASE 132 U/L (34-104); ANION GAP 12.5 (7.0-16.0); BILIRUBIN,TOTAL 0.4 mg/dL (0.3-1.0); BUN - UREA NITROGEN 26 mg/dL (7-25); CALCIUM SERUM 8.6 mg/dL (8.6-10.3); CARBON DIOXIDE 26.3 mEq/L (21.0-31.0); CHLORIDE 105 mEq/L (98-107); CREATININE - SERUM 1.2 mg/dL (0.7-1.3); GLUCOSE 110 mg/dL (70-105); POTASSIUM SERUM 3.8 mEq/L (3.5-5.1); SGOT 85 U/L (13-39); SGPT/ALT 88 U/L (7-52); SODIUM SERUM 140 mEq/L (136-145); TOTAL PROTEIN,SERUM 6.6 gm/dL (6.0-8.3)
[2018-09-16] MEDS: D5-0.45NS 1,000 ML IV SCH (09:37)
--- NOTE | 2018-09-16 12:17 | General Progress Note ---
Subjective - Review of Systems Service Date: 09/16/18 Events since last encounter: post op day 1 doing well no pain less swollen Subjective: sleeping comfortably Objective - Results Result Diagrams: 09/15/18 05:40 09/16/18 05:25 Recent Labs: Laboratory Last Values WBC 7.6 Th/cmm (4.8-10.8) 09/15/18 05:40 RBC 4.53 Mil/cmm (3.80-5.80) 09/15/18 05:40 Hgb 12.4 gm/dL (12-16) 09/15/18 05:40 Hct 38.5 % (41.0-60) L 09/15/18 05:40 MCV 84.9 fl (80-99) 09/15/18 05:40 MCH 27.4 pg (27.0-31.0) 09/15/18 05:40 MCHC Differential 32.3 pg (28.0-36.0) 09/15/18 05:40 RDW 13.0 % (11.5-20.0) 09/15/18 05:40 Plt Count 366 Th/cmm (150-400) 09/15/18 05:40 MPV 8.2 fl 09/15/18 05:40 Neutrophils % 65.4 % (40.0-80.0) 09/15/18 05:40 Lymphocytes % 21.3 % (20.0-50.0) 09/15/18 05:40 Monocytes % 8.3 % (2.0-10.0) 09/15/18 05:40 Eosinophils % 4.7 % (0.0-5.0) 09/15/18 05:40 Basophils % 0.3 % (0.0-2.0) 09/15/18 05:40 PT 9.7 SECONDS (9.5-11.5) 09/15/18 05:40 INR 0.93 (0.5-1.4) 09/15/18 05:40 PTT (Actin FS) 26.9 SECONDS (26.0-38.0) 09/15/18 05:40 Sodium 140 mEq/L (136-145) 09/16/18 05:25 Potassium 3.8 mEq/L (3.5-5.1) 09/16/18 05:25 Chloride 105 mEq/L (98-107) 09/16/18 05:25 Carbon Dioxide 26.3 mEq/L (21.0-31.0) 09/16/18 05:25 Anion Gap 12.5 (7.0-16.0) 09/16/18 05:25 BUN 26 mg/dL (7-25) H 09/16/18 05:25 Creatinine 1.2 mg/dL (0.7-1.3) 09/16/18 05:25 Est GFR ( Amer) TNP 09/16/18 05:25 Est GFR (Non-Af Amer) TNP 09/16/18 05:25 BUN/Creatinine Ratio 21.7 09/16/18 05:25 Glucose 110 mg/dL (70-105) H 09/16/18 05:25 POC Glucose 92 MG/DL (70 - 105) 09/15/18 06:48 Whole Bld Lactic Acid 1.67 mmol/L (0.60-1.99) 09/12/18 12:22 Calcium 8.6 mg/dL (8.6-10.3) 09/16/18 05:25 Magnesium 2.1 mg/dL (1.9-2.7) 09/15/18 05:40 Total Bilirubin 0.4 mg/dL (0.3-1.0) 09/16/18 05:25 AST 85 U/L (13-39) H 09/16/18 05:25 ALT 88 U/L (7-52) H 09/16/18 05:25 Alkaline Phosphatase 132 U/L (34-104) H 09/16/18 05:25 Creatine Kinase 97 U/L (30-223) 09/12/18 12:22 Troponin I < 0.01 ng/mL (0.01-0.05) L 09/12/18 12:22 Total Protein 6.6 gm/dL (6.0-8.3) 09/16/18 05:25 Albumin 3.3 gm/dL (4.2-5.5) L 09/16/18 05:25 Globulin 3.3 gm/dL 09/16/18 05:25 Albumin/Globulin Ratio 1.0 (1.0-1.8) 09/16/18 05:25 Urine Source MIDSTREAM 09/12/18 03:15 Urine Color YELLOW 09/12/18 03:15 Urine Clarity CLEAR (CLEAR) 09/12/18 03:15 Urine pH 5.5 (4.6 - 8.0) 09/12/18 03:15 Ur Specific [place] 1.025 (1.005-1.030) 09/12/18 03:15 Urine Protein NEGATIVE mg/dL (NEGATIVE) 09/12/18 03:15 Urine Glucose (UA) NEGATIVE mg/dL (NEGATIVE) 09/12/18 03:15 Urine Ketones NEGATIVE mg/dL (NEGATIVE) 09/12/18 03:15 Urine Blood NEGATIVE (NEGATIVE) 09/12/18 03:15 Urine Nitrate NEGATIVE (NEGATIVE) 09/12/18 03:15 Urine Bilirubin NEGATIVE (NEGATIVE) 09/12/18 03:15 Urine Urobilinogen 0.2 E.U./dL (0.2 - 1.0) 09/12/18 03:15 Ur Leukocyte Esterase NEGATIVE (NEGATIVE) 09/12/18 03:15 - Physical Exam Vitals and I&O: Vital Signs Temp 98.4 F 09/16/18 08:00 Pulse 89 09/16/18 09:29 Resp 18 09/16/18 10:00 BP 146/89 09/16/18 09:29 Pulse Ox 95 09/16/18 08:00 Intake & Output 09/15/18 09/16/18 09/16/18 18:59 06:59 18:59 Intake Total 1000 1050 Output Total 350 Balance 1000 700 Weight (lbs) 163 lb 164 lb Intake: Intake, IV Amount 1000 1050 D5-0.45NS 1,000 ml @ 75 1000 1000 mls/hr IV .[id number] [facility] Rx #:[id number] ceFAZolin 1 gm In Sodium 50 Chloride 0.9% 50 ml @ 100 mls/hr IV Q8HR [facility] Rx#: [id number] Output: Urine 350 Other: # Voids 3 3 # Bowel Movements 0 0 Weight Source Bedscale Bedscale Active Medications: Current Medications Acetaminophen (Tylenol) 650 mg PO Q6H PRN PRN Reason: Pain Or Fever Above 101 Stop: 11/14/18 18:21 Acetaminophen/Hydrocodone Bitart ([place] 5mg/325mg) 1 tab PO Q4H PRN PRN Reason: MODERATE PAIN (LEVEL 4-6) Stop: 11/14/18 18:21 Amlodipine Besylate (Norvasc) 10 mg PO DAILY [facility] Stop: 11/12/18 08:59 Last Admin: 09/16/18 09:29 Dose: 10 mg Aripiprazole (Abilify) 5 mg PO DAILY [facility]; Protocol Stop: 11/12/18 08:59 Last Admin: 09/16/18 09:29 Dose: 5 mg Hydrochlorothiazide (Hctz) 25 mg PO DAILY [facility] Stop: 11/12/18 08:59 Last Admin: 09/16/18 09:29 Dose: 25 mg Dextrose/Sodium Chloride (D5-0.45ns) 1,000 mls @ 75 mls/hr IV .[id number] [facility] Stop: 11/13/18 18:59 Last Admin: 09/16/18 09:37 Dose: 75 mls/hr Morphine Sulfate (Morphine) 2 mg IVP Q4HR PRN PRN Reason: Pain (Severe) Stop: 11/14/18 22:28 Last Admin: 09/16/18 00:21 Dose: 2 mg Mupirocin (Bactroban Oint) 1 appl NS BID [facility] Stop: 09/19/18 17:01 Last Admin: 09/16/18 09:29 Dose: 1 appl Ondansetron HCl (Zofran) 4 mg IVP Q6H PRN PRN Reason: Nausea / Vomiting Stop: 11/14/18 18:21 Vitamin D (Vitamin D) 400 iu PO DAILY [facility] Stop: 11/12/18 08:59 Last Admin: 09/16/18 09:29 Dose: 400 iu Assessment/Plan - Assessment Assessment: post op day 1 - Plan Plan: continue medical management advance diet as tolerated Nutritional Asmnt/Malnutr-PDOC - Dietary Evaluation Malnutrition Findings (Please click <Entered> for more info): Nutritional Asmnt/Malnutrition Start: 09/13/18 11: 32 Text: Status: Complete Freq: Protocol: Document 09/13/18 11:32 BARAK (Rec: 09/13/18 11:40 BARAK [email or web address]) Nutritional Asmnt/Malnutrition Patient General Information Nutritional Screening High Risk Diagnosis testicular swelling, hernia, dehydration Pertinent Medical Hx/Surgical Hx HTN, depression Subjective Information Pt seen sleeping in bed at time of visit. Current Diet Order/ Nutrition Support regular Pertinent Medications vit D Pertinent Labs 09/13 K 2.8, BUN 37, Cr 1.4 09/12 K 3.0, BUN 35, Cr 1.5, Glucose 111 Nutritional Hx/Data Height 5 ft 4 in Height (Calculated Centimeters) 162.6 Current Weight (lbs) 163 lb Weight (Calculated Kilograms) 73.9 Weight (Calculated Grams) 35672.6 [place] Body Weight 130 Body Mass Index (BMI) 27.9 Weight Status Overweight GI Symptoms GI Symptoms None Last BM not indicated Difficult in: None Skin Integrity/Comment: reddened edema to scrotum, reddened scar to left leg, scab to left elbow Estimated Nutritional Goals BEE in Kcals: Using Current wt Calories/Kcals/Kg 23-27 Kcals Calculated 2770-4521 Protein: Using Current wt Protein g/k.8 Protein Calculated 59 Fluid: ml 1702-1997ml (1ml/kcal) Nutritional Problem 1. Problem Problem altered nutrition related labs Etiology electrolytes imbalance Signs/Symptoms: K 2.8 Malnutrition Alert Is there a minimum of two criteria No selected? Query Text:Check all the applicable criteria. A minimum of two criteria are recommended for diagnosis of either severe or non-severe malnutrition. Malnutrition Related to Morbid Obesity Malnutrition related to morbid obesity No Intervention/Recommendation Comments 1. Continue with regular diet as ordered. MD to replace electrolyts as needed. 2. Monitor PO intake, wt, labs and skin integrity 3. F/U as moderate risk in 3-5 days Expected Outcomes/Goals Expected Outcomes/Goals 1. PO intake to meet at least 75% of nutritional needs. 2. Wt stability, skin to remain intact, labs to approach WNL.
[2018-09-17] MEDS: D5-0.45NS 1,000 ML IV SCH (11:48)
--- NOTE | 2018-09-17 11:59 | Internal Medicine Prog Note ---
Internal Medicine Subjective - Subjective Patient seen and examined:: chart reviewed Patient is:: asleep, other (doing well s/p incarcerated right inguinal hernia with omentum bowel (colon and small bowel)) Patient Complaints of:: other (scrotal swelling, secondray to Inguinal hernia.) Per staff patient has:: no adverse event, no episodes of fall, tolerating meds Internal Medicine Objective - Results Result Diagrams: 09/15/18 05:40 09/16/18 05:25 Recent Labs: Laboratory Last Values WBC 7.6 Th/cmm (4.8-10.8) 09/15/18 05:40 RBC 4.53 Mil/cmm (3.80-5.80) 09/15/18 05:40 Hgb 12.4 gm/dL (12-16) 09/15/18 05:40 Hct 38.5 % (41.0-60) L 09/15/18 05:40 MCV 84.9 fl (80-99) 09/15/18 05:40 MCH 27.4 pg (27.0-31.0) 09/15/18 05:40 MCHC Differential 32.3 pg (28.0-36.0) 09/15/18 05:40 RDW 13.0 % (11.5-20.0) 09/15/18 05:40 Plt Count 366 Th/cmm (150-400) 09/15/18 05:40 MPV 8.2 fl 09/15/18 05:40 Neutrophils % 65.4 % (40.0-80.0) 09/15/18 05:40 Lymphocytes % 21.3 % (20.0-50.0) 09/15/18 05:40 Monocytes % 8.3 % (2.0-10.0) 09/15/18 05:40 Eosinophils % 4.7 % (0.0-5.0) 09/15/18 05:40 Basophils % 0.3 % (0.0-2.0) 09/15/18 05:40 PT 9.7 SECONDS (9.5-11.5) 09/15/18 05:40 INR 0.93 (0.5-1.4) 09/15/18 05:40 PTT (Actin FS) 26.9 SECONDS (26.0-38.0) 09/15/18 05:40 Sodium 140 mEq/L (136-145) 09/16/18 05:25 Potassium 3.8 mEq/L (3.5-5.1) 09/16/18 05:25 Chloride 105 mEq/L (98-107) 09/16/18 05:25 Carbon Dioxide 26.3 mEq/L (21.0-31.0) 09/16/18 05:25 Anion Gap 12.5 (7.0-16.0) 09/16/18 05:25 BUN 26 mg/dL (7-25) H 09/16/18 05:25 Creatinine 1.2 mg/dL (0.7-1.3) 09/16/18 05:25 Est GFR ( Amer) TNP 09/16/18 05:25 Est GFR (Non-Af Amer) TNP 09/16/18 05:25 BUN/Creatinine Ratio 21.7 09/16/18 05:25 Glucose 110 mg/dL (70-105) H 09/16/18 05:25 POC Glucose 92 MG/DL (70 - 105) 09/15/18 06:48 Whole Bld Lactic Acid 1.67 mmol/L (0.60-1.99) 09/12/18 12:22 Calcium 8.6 mg/dL (8.6-10.3) 09/16/18 05:25 Magnesium 2.1 mg/dL (1.9-2.7) 09/15/18 05:40 Total Bilirubin 0.4 mg/dL (0.3-1.0) 09/16/18 05:25 AST 85 U/L (13-39) H 09/16/18 05:25 ALT 88 U/L (7-52) H 09/16/18 05:25 Alkaline Phosphatase 132 U/L (34-104) H 09/16/18 05:25 Creatine Kinase 97 U/L (30-223) 09/12/18 12:22 Troponin I < 0.01 ng/mL (0.01-0.05) L 09/12/18 12:22 Total Protein 6.6 gm/dL (6.0-8.3) 09/16/18 05:25 Albumin 3.3 gm/dL (4.2-5.5) L 09/16/18 05:25 Globulin 3.3 gm/dL 09/16/18 05:25 Albumin/Globulin Ratio 1.0 (1.0-1.8) 09/16/18 05:25 Urine Source MIDSTREAM 09/12/18 03:15 Urine Color YELLOW 09/12/18 03:15 Urine Clarity CLEAR (CLEAR) 09/12/18 03:15 Urine pH 5.5 (4.6 - 8.0) 09/12/18 03:15 Ur Specific [place] 1.025 (1.005-1.030) 09/12/18 03:15 Urine Protein NEGATIVE mg/dL (NEGATIVE) 09/12/18 03:15 Urine Glucose (UA) NEGATIVE mg/dL (NEGATIVE) 09/12/18 03:15 Urine Ketones NEGATIVE mg/dL (NEGATIVE) 09/12/18 03:15 Urine Blood NEGATIVE (NEGATIVE) 09/12/18 03:15 Urine Nitrate NEGATIVE (NEGATIVE) 09/12/18 03:15 Urine Bilirubin NEGATIVE (NEGATIVE) 09/12/18 03:15 Urine Urobilinogen 0.2 E.U./dL (0.2 - 1.0) 09/12/18 03:15 Ur Leukocyte Esterase NEGATIVE (NEGATIVE) 09/12/18 03:15 - Physical Exam Vitals and I&O: Vital Signs Temp 100.0 F 09/17/18 11:55 Pulse 97 09/17/18 11:55 Resp 18 09/17/18 11:55 BP 106/82 09/17/18 11:55 Pulse Ox 92 09/17/18 11:55 Intake & Output 09/16/18 09/17/18 09/17/18 18:59 06:59 18:59 Intake Total 1360 Output Total 420 Balance 940 Weight (lbs) 74.389 kg Intake: Intake, IV Amount 1000 D5-0.45NS 1,000 ml @ 75 1000 mls/hr IV .[id number] [facility] Rx #:[id number] Oral 360 Output: Urine 420 Other: Weight Source Bedscale Active Medications: Current Medications Acetaminophen (Tylenol) 650 mg PO Q6H PRN PRN Reason: Pain Or Fever Above 101 Stop: 11/14/18 18:21 Acetaminophen/Hydrocodone Bitart ([place] 5mg/325mg) 1 tab PO Q4H PRN PRN Reason: MODERATE PAIN (LEVEL 4-6) Stop: 11/14/18 18:21 Amlodipine Besylate (Norvasc) 10 mg PO DAILY [facility] Stop: 11/12/18 08:59 Last Admin: 09/17/18 08:45 Dose: 10 mg Aripiprazole (Abilify) 5 mg PO DAILY [facility]; Protocol Stop: 11/12/18 08:59 Last Admin: 09/17/18 08:45 Dose: 5 mg Hydrochlorothiazide (Hctz) 25 mg PO DAILY [facility] Stop: 11/12/18 08:59 Last Admin: 09/17/18 08:45 Dose: 25 mg Dextrose/Sodium Chloride (D5-0.45ns) 1,000 mls @ 75 mls/hr IV .[id number] [facility] Stop: 11/13/18 18:59 Last Admin: 09/17/18 11:48 Dose: 75 mls/hr Morphine Sulfate (Morphine) 2 mg IVP Q4HR PRN PRN Reason: Pain (Severe) Stop: 11/14/18 22:28 Last Admin: 09/16/18 22:58 Dose: 2 mg Mupirocin (Bactroban Oint) 1 appl NS BID [facility] Stop: 09/19/18 17:01 Last Admin: 09/17/18 08:45 Dose: 1 appl Ondansetron HCl (Zofran) 4 mg IVP Q6H PRN PRN Reason: Nausea / Vomiting Stop: 11/14/18 18:21 Vitamin D (Vitamin D) 400 iu PO DAILY [facility] Stop: 11/12/18 08:59 Last Admin: 09/17/18 08:45 Dose: 400 iu Physical Exam: 77 y/o male patient has hx of scrotal swelling secondary to Inguinal hernia. General: weak HEENT: NC/AT Neck: Supple Lungs: CTAB Cardiovascular: without murmur Abdomen: non-distended, other (has dressing over surgical area) Extremities: excoriation, other (scrotal swelling) Neurological: alert Internal Medicine Assmt/Plan - Assessment Assessment: scrotal swelling hernia dehydration protein calorie malnutrition hypokalemia - Plan Plan: abx to continue per ID as per order sheet. Nutritional Asmnt/Malnutr-PDOC - Dietary Evaluation Malnutrition Findings (Please click <Entered> for more info): Nutritional Asmnt/Malnutrition Start: 09/13/18 11: 32 Text: Status: Complete Freq: Protocol: Document 09/13/18 11:32 LCAYANAG (Rec: 09/13/18 11:40 LCAYANAG [id number]) Nutritional Asmnt/Malnutrition Patient General Information Nutritional Screening High Risk Diagnosis testicular swelling, hernia, dehydration Pertinent Medical Hx/Surgical Hx HTN, depression Subjective Information Pt seen sleeping in bed at time of visit. Current Diet Order/ Nutrition Support regular Pertinent Medications vit D Pertinent Labs 09/13 K 2.8, BUN 37, Cr 1.4 09/12 K 3.0, BUN 35, Cr 1.5, Glucose 111 Nutritional Hx/Data Height 1.63 m Height (Calculated Centimeters) 162.6 Current Weight (lbs) 73.936 kg Weight (Calculated Kilograms) 73.9 Weight (Calculated Grams) 05203.6 [place] Body Weight 130 Body Mass Index (BMI) 27.9 Weight Status Overweight GI Symptoms GI Symptoms None Last BM not indicated Difficult in: None Skin Integrity/Comment: reddened edema to scrotum, reddened scar to left leg, scab to left elbow Estimated Nutritional Goals BEE in Kcals: Using Current wt Calories/Kcals/Kg 23-27 Kcals Calculated 8653-8972 Protein: Using Current wt Protein g/k.8 Protein Calculated 59 Fluid: ml 1702-1998ml (1ml/kcal) Nutritional Problem 1. Problem Problem altered nutrition related labs Etiology electrolytes imbalance Signs/Symptoms: K 2.8 Malnutrition Alert Is there a minimum of two criteria No selected? Query Text:Check all the applicable criteria. A minimum of two criteria are recommended for diagnosis of either severe or non-severe malnutrition. Malnutrition Related to Morbid Obesity Malnutrition related to morbid obesity No Intervention/Recommendation Comments 1. Continue with regular diet as ordered. MD to replace electrolyts as needed. 2. Monitor PO intake, wt, labs and skin integrity 3. F/U as moderate risk in 3-5 days Expected Outcomes/Goals Expected Outcomes/Goals 1. PO intake to meet at least 75% of nutritional needs. 2. Wt stability, skin to remain intact, labs to approach WNL.
--- NOTE | 2018-09-17 19:44 | Infectious Disease Prog Note ---
Infectious Disease Subjective - Review of Systems Service Date: 09/17/18 Subjective: herniorrhaphy was performed. Infectious Disease Objective - Results Result Diagrams: 09/15/18 05:40 09/16/18 05:25 Recent Labs: Laboratory Last Values WBC 7.6 Th/cmm (4.8-10.8) 09/15/18 05:40 RBC 4.53 Mil/cmm (3.80-5.80) 09/15/18 05:40 Hgb 12.4 gm/dL (12-16) 09/15/18 05:40 Hct 38.5 % (41.0-60) L 09/15/18 05:40 MCV 84.9 fl (80-99) 09/15/18 05:40 MCH 27.4 pg (27.0-31.0) 09/15/18 05:40 MCHC Differential 32.3 pg (28.0-36.0) 09/15/18 05:40 RDW 13.0 % (11.5-20.0) 09/15/18 05:40 Plt Count 366 Th/cmm (150-400) 09/15/18 05:40 MPV 8.2 fl 09/15/18 05:40 Neutrophils % 65.4 % (40.0-80.0) 09/15/18 05:40 Lymphocytes % 21.3 % (20.0-50.0) 09/15/18 05:40 Monocytes % 8.3 % (2.0-10.0) 09/15/18 05:40 Eosinophils % 4.7 % (0.0-5.0) 09/15/18 05:40 Basophils % 0.3 % (0.0-2.0) 09/15/18 05:40 PT 9.7 SECONDS (9.5-11.5) 09/15/18 05:40 INR 0.93 (0.5-1.4) 09/15/18 05:40 PTT (Actin FS) 26.9 SECONDS (26.0-38.0) 09/15/18 05:40 Sodium 140 mEq/L (136-145) 09/16/18 05:25 Potassium 3.8 mEq/L (3.5-5.1) 09/16/18 05:25 Chloride 105 mEq/L (98-107) 09/16/18 05:25 Carbon Dioxide 26.3 mEq/L (21.0-31.0) 09/16/18 05:25 Anion Gap 12.5 (7.0-16.0) 09/16/18 05:25 BUN 26 mg/dL (7-25) H 09/16/18 05:25 Creatinine 1.2 mg/dL (0.7-1.3) 09/16/18 05:25 Est GFR ( Amer) TNP 09/16/18 05:25 Est GFR (Non-Af Amer) TNP 09/16/18 05:25 BUN/Creatinine Ratio 21.7 09/16/18 05:25 Glucose 110 mg/dL (70-105) H 09/16/18 05:25 POC Glucose 92 MG/DL (70 - 105) 09/15/18 06:48 Whole Bld Lactic Acid 1.67 mmol/L (0.60-1.99) 09/12/18 12:22 Calcium 8.6 mg/dL (8.6-10.3) 09/16/18 05:25 Magnesium 2.1 mg/dL (1.9-2.7) 09/15/18 05:40 Total Bilirubin 0.4 mg/dL (0.3-1.0) 09/16/18 05:25 AST 85 U/L (13-39) H 09/16/18 05:25 ALT 88 U/L (7-52) H 09/16/18 05:25 Alkaline Phosphatase 132 U/L (34-104) H 09/16/18 05:25 Creatine Kinase 97 U/L (30-223) 09/12/18 12:22 Troponin I < 0.01 ng/mL (0.01-0.05) L 09/12/18 12:22 Total Protein 6.6 gm/dL (6.0-8.3) 09/16/18 05:25 Albumin 3.3 gm/dL (4.2-5.5) L 09/16/18 05:25 Globulin 3.3 gm/dL 09/16/18 05:25 Albumin/Globulin Ratio 1.0 (1.0-1.8) 09/16/18 05:25 Urine Source MIDSTREAM 09/12/18 03:15 Urine Color YELLOW 09/12/18 03:15 Urine Clarity CLEAR (CLEAR) 09/12/18 03:15 Urine pH 5.5 (4.6 - 8.0) 09/12/18 03:15 Ur Specific [place] 1.025 (1.005-1.030) 09/12/18 03:15 Urine Protein NEGATIVE mg/dL (NEGATIVE) 09/12/18 03:15 Urine Glucose (UA) NEGATIVE mg/dL (NEGATIVE) 09/12/18 03:15 Urine Ketones NEGATIVE mg/dL (NEGATIVE) 09/12/18 03:15 Urine Blood NEGATIVE (NEGATIVE) 09/12/18 03:15 Urine Nitrate NEGATIVE (NEGATIVE) 09/12/18 03:15 Urine Bilirubin NEGATIVE (NEGATIVE) 09/12/18 03:15 Urine Urobilinogen 0.2 E.U./dL (0.2 - 1.0) 09/12/18 03:15 Ur Leukocyte Esterase NEGATIVE (NEGATIVE) 09/12/18 03:15 - Physical Exam Vitals and I&O: Vital Signs Temp 101.5 F 09/17/18 16:00 Pulse 114 09/17/18 16:00 Resp 18 09/17/18 17:55 BP 148/79 09/17/18 16:00 Pulse Ox 94 09/17/18 16:00 Intake & Output 09/17/18 09/17/18 09/18/18 06:59 18:59 06:59 Intake Total 1360 480 Output Total 420 500 Balance 940 -20 Weight (lbs) 74.389 kg 74.389 kg Intake: Intake, IV Amount 1000 D5-0.45NS 1,000 ml @ 75 1000 mls/hr IV .[id number] [facility] Rx #:[id number] Oral 360 480 Output: Urine 420 500 Other: # Bowel Movements 0 Weight Source Bedscale Bedscale Active Medications: Current Medications Acetaminophen (Tylenol) 650 mg PO Q6H PRN PRN Reason: Pain Or Fever Above 101 Stop: 11/14/18 18:21 Last Admin: 09/17/18 16:01 Dose: 650 mg Acetaminophen/Hydrocodone Bitart ([place] 5mg/325mg) 1 tab PO Q4H PRN PRN Reason: MODERATE PAIN (LEVEL 4-6) Stop: 11/14/18 18:21 Amlodipine Besylate (Norvasc) 10 mg PO DAILY [facility] Stop: 11/12/18 08:59 Last Admin: 09/17/18 08:45 Dose: 10 mg Aripiprazole (Abilify) 5 mg PO DAILY [facility]; Protocol Stop: 11/12/18 08:59 Last Admin: 09/17/18 08:45 Dose: 5 mg Hydrochlorothiazide (Hctz) 25 mg PO DAILY [facility] Stop: 11/12/18 08:59 Last Admin: 09/17/18 08:45 Dose: 25 mg Dextrose/Sodium Chloride (D5-0.45ns) 1,000 mls @ 75 mls/hr IV .[id number] [facility] Stop: 11/13/18 18:59 Last Admin: 09/17/18 11:48 Dose: 75 mls/hr Morphine Sulfate (Morphine) 2 mg IVP Q4HR PRN PRN Reason: Pain (Severe) Stop: 11/14/18 22:28 Last Admin: 09/16/18 22:58 Dose: 2 mg Mupirocin (Bactroban Oint) 1 appl NS BID [facility] Stop: 09/19/18 17:01 Last Admin: 09/17/18 16:01 Dose: 1 appl Ondansetron HCl (Zofran) 4 mg IVP Q6H PRN PRN Reason: Nausea / Vomiting Stop: 11/14/18 18:21 Vitamin D (Vitamin D) 400 iu PO DAILY [facility] Stop: 11/12/18 08:59 Last Admin: 09/17/18 08:45 Dose: 400 iu General: no acute distress, well developed, well nourished HEENT: atraumatic, normocephalic, PERRLA, EOMI Neck: supple, no thyromegaly Cardiovascular: S1S2, regular Lungs: clear to auscultation bilaterally, clear to percussion Abdomen: soft, no tender, no distended, no mass Extremities: no cyanosis, no clubbing, no edema Neurological: awake, alert Skin: intact Infectious Disease Assmt/Plan - Assessment Assessment: 1. Scrotal swelling, most likely secondary to inguinal hernia. 2. Hypertension. 3. Azotemia, most likely due to dehydration. 4. Hypokalemia. We will replace with potassium IV as the patient has refused taking p.o. - Plan Plan: HErniorrhaphy was performed. Nutritional Asmnt/Malnutr-PDOC - Dietary Evaluation Malnutrition Findings (Please click <Entered> for more info): Nutritional Asmnt/Malnutrition Start: 09/13/18 11: 32 Text: Status: Complete Freq: Protocol: Document 09/13/18 11:32 BARAK (Rec: 09/13/18 11:40 BARAK [email or web address]) Nutritional Asmnt/Malnutrition Patient General Information Nutritional Screening High Risk Diagnosis testicular swelling, hernia, dehydration Pertinent Medical Hx/Surgical Hx HTN, depression Subjective Information Pt seen sleeping in bed at time of visit. Current Diet Order/ Nutrition Support regular Pertinent Medications vit D Pertinent Labs 09/13 K 2.8, BUN 37, Cr 1.4 09/12 K 3.0, BUN 35, Cr 1.5, Glucose 111 Nutritional Hx/Data Height 1.63 m Height (Calculated Centimeters) 162.6 Current Weight (lbs) 73.936 kg Weight (Calculated Kilograms) 73.9 Weight (Calculated Grams) 72662.6 [place] Body Weight 130 Body Mass Index (BMI) 27.9 Weight Status Overweight GI Symptoms GI Symptoms None Last BM not indicated Difficult in: None Skin Integrity/Comment: reddened edema to scrotum, reddened scar to left leg, scab to left elbow Estimated Nutritional Goals BEE in Kcals: Using Current wt Calories/Kcals/Kg 23-27 Kcals Calculated 0443-1872 Protein: Using Current wt Protein g/k.8 Protein Calculated 59 Fluid: ml 1702-1998ml (1ml/kcal) Nutritional Problem 1. Problem Problem altered nutrition related labs Etiology electrolytes imbalance Signs/Symptoms: K 2.8 Malnutrition Alert Is there a minimum of two criteria No selected? Query Text:Check all the applicable criteria. A minimum of two criteria are recommended for diagnosis of either severe or non-severe malnutrition. Malnutrition Related to Morbid Obesity Malnutrition related to morbid obesity No Intervention/Recommendation Comments 1. Continue with regular diet as ordered. MD to replace electrolyts as needed. 2. Monitor PO intake, wt, labs and skin integrity 3. F/U as moderate risk in 3-5 days Expected Outcomes/Goals Expected Outcomes/Goals 1. PO intake to meet at least 75% of nutritional needs. 2. Wt stability, skin to remain intact, labs to approach WNL.
[2018-09-18 06:38] LABS: % BASOPHILS 0.6 % (0.0-2.0); % EOSINOPHILS 0.7 % (0.0-5.0); % LYMPHOCYTES 12.3 % (20.0-50.0); % MONOCYTES 11.6 % (2.0-10.0); % NEUTROPHILS 74.8 % (40.0-80.0); BASOPHILE ABSOLUTE 0.1 Th/cumm (0-0.2); EOSINOPHILE ABSOLUTE 0.1 Th/cmm (0.1-0.4); HEMATOCRIT 34.3 % (41.0-60); HEMOGLOBIN 11.2 gm/dL (12-16); LYMPHOCYTE ABSOLUTE 1.2 Th/cmm (1.5-3.0); MEAN CELL VOLUME 84.1 fl (80-99); MEAN CORPUSCULAR HEMOGLOBIN 27.6 pg (27.0-31.0); MEAN CORPUSCULAR HGB CONC 32.8 pg (28.0-36.0); MEAN PLATELET VOLUME 8.4 fl; MONOCYTE ABSOLUTE 1.1 Th/cmm (0.3-1.0); NEUTROPHILE ABSOLUTE 6.9 Th/cmm (1.8-8.0); PLATELET COUNT 336 Th/cmm (150-400); RED BLOOD COUNT 4.08 Mil/cmm (3.80-5.80); RED CELL DISTRIBUTION WIDTH 12.6 % (11.5-20.0); WHITE BLOOD COUNT 9.4 Th/cmm (4.8-10.8)
[2018-09-18 06:49] LABS: ALB/GLOB RATIO 0.9 (1.0-1.8); ALBUMIN 3.1 gm/dL (4.2-5.5); ALKALINE PHOSPHATASE 100 U/L (34-104); ANION GAP 12.9 (7.0-16.0); BILIRUBIN,TOTAL 0.6 mg/dL (0.3-1.0); BUN - UREA NITROGEN 26 mg/dL (7-25); CALCIUM SERUM 8.5 mg/dL (8.6-10.3); CARBON DIOXIDE 24.1 mEq/L (21.0-31.0); CHLORIDE 102 mEq/L (98-107); CREATININE - SERUM 1.4 mg/dL (0.7-1.3); GLUCOSE 110 mg/dL (70-105); SGOT 14 U/L (13-39); SGPT/ALT 19 U/L (7-52); SODIUM SERUM 136 mEq/L (136-145); TOTAL PROTEIN,SERUM 6.4 gm/dL (6.0-8.3)
[2018-09-18] MEDS ORDERED: Potassium Chloride 20 mEq ER Tab PO ONE (08:41)
--- NOTE | 2018-09-18 11:48 | Internal Medicine Prog Note ---
Internal Medicine Subjective - Subjective Service Date: 09/18/18 Patient seen and examined:: with staff Patient is:: asleep, other (doing well s/p incarcerated right inguinal hernia with omentum bowel (colon and small bowel)) Patient Complaints of:: other (scrotal swelling, secondray to Inguinal hernia.) Per staff patient has:: no adverse event, no episodes of fall, tolerating meds Internal Medicine Objective - Results Result Diagrams: 09/18/18 06:02 09/18/18 06:02 Recent Labs: Laboratory Last Values WBC 9.4 Th/cmm (4.8-10.8) 09/18/18 06:02 RBC 4.08 Mil/cmm (3.80-5.80) 09/18/18 06:02 Hgb 11.2 gm/dL (12-16) L 09/18/18 06:02 Hct 34.3 % (41.0-60) L 09/18/18 06:02 MCV 84.1 fl (80-99) 09/18/18 06:02 MCH 27.6 pg (27.0-31.0) 09/18/18 06:02 MCHC Differential 32.8 pg (28.0-36.0) 09/18/18 06:02 RDW 12.6 % (11.5-20.0) 09/18/18 06:02 Plt Count 336 Th/cmm (150-400) 09/18/18 06:02 MPV 8.4 fl 09/18/18 06:02 Neutrophils % 74.8 % (40.0-80.0) 09/18/18 06:02 Lymphocytes % 12.3 % (20.0-50.0) L 09/18/18 06:02 Monocytes % 11.6 % (2.0-10.0) H 09/18/18 06:02 Eosinophils % 0.7 % (0.0-5.0) 09/18/18 06:02 Basophils % 0.6 % (0.0-2.0) 09/18/18 06:02 PT 9.7 SECONDS (9.5-11.5) 09/15/18 05:40 INR 0.93 (0.5-1.4) 09/15/18 05:40 PTT (Actin FS) 26.9 SECONDS (26.0-38.0) 09/15/18 05:40 Sodium 136 mEq/L (136-145) 09/18/18 06:02 Potassium 3.0 mEq/L (3.5-5.1) L 09/18/18 06:02 Chloride 102 mEq/L (98-107) 09/18/18 06:02 Carbon Dioxide 24.1 mEq/L (21.0-31.0) 09/18/18 06:02 Anion Gap 12.9 (7.0-16.0) 09/18/18 06:02 BUN 26 mg/dL (7-25) H 09/18/18 06:02 Creatinine 1.4 mg/dL (0.7-1.3) H 09/18/18 06:02 Est GFR ( Amer) TNP 09/18/18 06:02 Est GFR (Non-Af Amer) TNP 09/18/18 06:02 BUN/Creatinine Ratio 18.6 09/18/18 06:02 Glucose 110 mg/dL (70-105) H 09/18/18 06:02 POC Glucose 92 MG/DL (70 - 105) 09/15/18 06:48 Whole Bld Lactic Acid 1.67 mmol/L (0.60-1.99) 09/12/18 12:22 Calcium 8.5 mg/dL (8.6-10.3) L 09/18/18 06:02 Magnesium 2.1 mg/dL (1.9-2.7) 09/15/18 05:40 Total Bilirubin 0.6 mg/dL (0.3-1.0) 09/18/18 06:02 AST 14 U/L (13-39) 09/18/18 06:02 ALT 19 U/L (7-52) 09/18/18 06:02 Alkaline Phosphatase 100 U/L (34-104) 09/18/18 06:02 Creatine Kinase 97 U/L (30-223) 09/12/18 12:22 Troponin I < 0.01 ng/mL (0.01-0.05) L 09/12/18 12:22 Total Protein 6.4 gm/dL (6.0-8.3) 09/18/18 06:02 Albumin 3.1 gm/dL (4.2-5.5) L 09/18/18 06:02 Globulin 3.3 gm/dL 09/18/18 06:02 Albumin/Globulin Ratio 0.9 (1.0-1.8) L 09/18/18 06:02 Urine Source MIDSTREAM 09/12/18 03:15 Urine Color YELLOW 09/12/18 03:15 Urine Clarity CLEAR (CLEAR) 09/12/18 03:15 Urine pH 5.5 (4.6 - 8.0) 09/12/18 03:15 Ur Specific [place] 1.025 (1.005-1.030) 09/12/18 03:15 Urine Protein NEGATIVE mg/dL (NEGATIVE) 09/12/18 03:15 Urine Glucose (UA) NEGATIVE mg/dL (NEGATIVE) 09/12/18 03:15 Urine Ketones NEGATIVE mg/dL (NEGATIVE) 09/12/18 03:15 Urine Blood NEGATIVE (NEGATIVE) 09/12/18 03:15 Urine Nitrate NEGATIVE (NEGATIVE) 09/12/18 03:15 Urine Bilirubin NEGATIVE (NEGATIVE) 09/12/18 03:15 Urine Urobilinogen 0.2 E.U./dL (0.2 - 1.0) 09/12/18 03:15 Ur Leukocyte Esterase NEGATIVE (NEGATIVE) 09/12/18 03:15 - Physical Exam Vitals and I&O: Vital Signs Temp 97.8 F 09/18/18 08:53 Pulse 84 09/18/18 09:59 Resp 19 09/18/18 08:53 BP 131/72 09/18/18 09:59 Pulse Ox 93 09/18/18 08:53 Intake & Output 09/17/18 09/18/18 09/18/18 18:59 06:59 18:59 Intake Total 480 Output Total 500 850 Balance -20 -850 Weight (lbs) 74.389 kg 74.389 kg Intake: Oral 480 Output: Urine 500 850 Other: # Bowel Movements 0 Weight Source Bedscale Bedscale Active Medications: Current Medications Acetaminophen (Tylenol) 650 mg PO Q6H PRN PRN Reason: Pain Or Fever Above 101 Stop: 11/14/18 18:21 Last Admin: 09/17/18 16:01 Dose: 650 mg Acetaminophen/Hydrocodone Bitart ([place] 5mg/325mg) 1 tab PO Q4H PRN PRN Reason: MODERATE PAIN (LEVEL 4-6) Stop: 11/14/18 18:21 Amlodipine Besylate (Norvasc) 10 mg PO DAILY [facility] Stop: 11/12/18 08:59 Last Admin: 09/18/18 09:59 Dose: 10 mg Aripiprazole (Abilify) 5 mg PO DAILY [facility]; Protocol Stop: 11/12/18 08:59 Last Admin: 09/18/18 09:58 Dose: 5 mg Hydrochlorothiazide (Hctz) 25 mg PO DAILY [facility] Stop: 11/12/18 08:59 Last Admin: 09/18/18 09:58 Dose: 25 mg Dextrose/Sodium Chloride (D5-0.45ns) 1,000 mls @ 75 mls/hr IV .[id number] [facility] Stop: 11/13/18 18:59 Last Admin: 09/17/18 11:48 Dose: 75 mls/hr Morphine Sulfate (Morphine) 2 mg IVP Q4HR PRN PRN Reason: Pain (Severe) Stop: 11/14/18 22:28 Last Admin: 09/16/18 22:58 Dose: 2 mg Mupirocin (Bactroban Oint) 1 appl NS BID [facility] Stop: 09/19/18 17:01 Last Admin: 09/18/18 09:59 Dose: 1 appl Ondansetron HCl (Zofran) 4 mg IVP Q6H PRN PRN Reason: Nausea / Vomiting Stop: 11/14/18 18:21 Vitamin D (Vitamin D) 400 iu PO DAILY [facility] Stop: 11/12/18 08:59 Last Admin: 09/18/18 09:59 Dose: 400 iu Physical Exam: 77 y/o male patient has hx of scrotal swelling secondary to Inguinal hernia. Herinorrhaphy was performed. General: weak HEENT: NC/AT Neck: Supple Lungs: CTAB Cardiovascular: without murmur Abdomen: non-distended, other (has dressing over surgical area) Extremities: excoriation, other (scrotal swelling) Neurological: alert - Procedures Procedures: Procedures Procedure Code Date INTRODUCE ADHESION BARRIER IN PERITON CAV, OPEN [id number] 09/12/18 REPAIR RIGHT INGUINAL REGION, OPEN APPROACH [id number] 09/12/18 SUPPLEMENT R INGUINAL REGION WITH SYNTH SUB, OPEN APPROACH [id number] 09/12/18 Internal Medicine Assmt/Plan - Assessment Assessment: scrotal swelling hernia dehydration protein calorie malnutrition hypokalemia - Plan Plan: abx to continue per ID as per order sheet. Nutritional Asmnt/Malnutr-PDOC - Dietary Evaluation Malnutrition Findings (Please click <Entered> for more info): Nutritional Asmnt/Malnutrition Start: 09/13/18 11: 32 Text: Status: Complete Freq: Protocol: Document 09/13/18 11:32 LCAYANAG (Rec: 09/13/18 11:40 BARAK [email or web address]) Nutritional Asmnt/Malnutrition Patient General Information Nutritional Screening High Risk Diagnosis testicular swelling, hernia, dehydration Pertinent Medical Hx/Surgical Hx HTN, depression Subjective Information Pt seen sleeping in bed at time of visit. Current Diet Order/ Nutrition Support regular Pertinent Medications vit D Pertinent Labs 09/13 K 2.8, BUN 37, Cr 1.4 09/12 K 3.0, BUN 35, Cr 1.5, Glucose 111 Nutritional Hx/Data Height 1.63 m Height (Calculated Centimeters) 162.6 Current Weight (lbs) 73.936 kg Weight (Calculated Kilograms) 73.9 Weight (Calculated Grams) 52305.6 [place] Body Weight 130 Body Mass Index (BMI) 27.9 Weight Status Overweight GI Symptoms GI Symptoms None Last BM not indicated Difficult in: None Skin Integrity/Comment: reddened edema to scrotum, reddened scar to left leg, scab to left elbow Estimated Nutritional Goals BEE in Kcals: Using Current wt Calories/Kcals/Kg 23-27 Kcals Calculated 1253-4972 Protein: Using Current wt Protein g/k.8 Protein Calculated 59 Fluid: ml 1702-1998ml (1ml/kcal) Nutritional Problem 1. Problem Problem altered nutrition related labs Etiology electrolytes imbalance Signs/Symptoms: K 2.8 Malnutrition Alert Is there a minimum of two criteria No selected? Query Text:Check all the applicable criteria. A minimum of two criteria are recommended for diagnosis of either severe or non-severe malnutrition. Malnutrition Related to Morbid Obesity Malnutrition related to morbid obesity No Intervention/Recommendation Comments 1. Continue with regular diet as ordered. MD to replace electrolyts as needed. 2. Monitor PO intake, wt, labs and skin integrity 3. F/U as moderate risk in 3-5 days Expected Outcomes/Goals Expected Outcomes/Goals 1. PO intake to meet at least 75% of nutritional needs. 2. Wt stability, skin to remain intact, labs to approach WNL.
--- NOTE | 2018-09-18 11:52 | Infectious Disease Prog Note ---
Infectious Disease Subjective - Review of Systems Service Date: 09/18/18 Subjective: herniorrhaphy was performed. Infectious Disease Objective - Results Result Diagrams: 09/18/18 06:02 09/18/18 06:02 Recent Labs: Laboratory Last Values WBC 9.4 Th/cmm (4.8-10.8) 09/18/18 06:02 RBC 4.08 Mil/cmm (3.80-5.80) 09/18/18 06:02 Hgb 11.2 gm/dL (12-16) L 09/18/18 06:02 Hct 34.3 % (41.0-60) L 09/18/18 06:02 MCV 84.1 fl (80-99) 09/18/18 06:02 MCH 27.6 pg (27.0-31.0) 09/18/18 06:02 MCHC Differential 32.8 pg (28.0-36.0) 09/18/18 06:02 RDW 12.6 % (11.5-20.0) 09/18/18 06:02 Plt Count 336 Th/cmm (150-400) 09/18/18 06:02 MPV 8.4 fl 09/18/18 06:02 Neutrophils % 74.8 % (40.0-80.0) 09/18/18 06:02 Lymphocytes % 12.3 % (20.0-50.0) L 09/18/18 06:02 Monocytes % 11.6 % (2.0-10.0) H 09/18/18 06:02 Eosinophils % 0.7 % (0.0-5.0) 09/18/18 06:02 Basophils % 0.6 % (0.0-2.0) 09/18/18 06:02 PT 9.7 SECONDS (9.5-11.5) 09/15/18 05:40 INR 0.93 (0.5-1.4) 09/15/18 05:40 PTT (Actin FS) 26.9 SECONDS (26.0-38.0) 09/15/18 05:40 Sodium 136 mEq/L (136-145) 09/18/18 06:02 Potassium 3.0 mEq/L (3.5-5.1) L 09/18/18 06:02 Chloride 102 mEq/L (98-107) 09/18/18 06:02 Carbon Dioxide 24.1 mEq/L (21.0-31.0) 09/18/18 06:02 Anion Gap 12.9 (7.0-16.0) 09/18/18 06:02 BUN 26 mg/dL (7-25) H 09/18/18 06:02 Creatinine 1.4 mg/dL (0.7-1.3) H 09/18/18 06:02 Est GFR ( Amer) TNP 09/18/18 06:02 Est GFR (Non-Af Amer) TNP 09/18/18 06:02 BUN/Creatinine Ratio 18.6 09/18/18 06:02 Glucose 110 mg/dL (70-105) H 09/18/18 06:02 POC Glucose 92 MG/DL (70 - 105) 09/15/18 06:48 Whole Bld Lactic Acid 1.67 mmol/L (0.60-1.99) 09/12/18 12:22 Calcium 8.5 mg/dL (8.6-10.3) L 09/18/18 06:02 Magnesium 2.1 mg/dL (1.9-2.7) 09/15/18 05:40 Total Bilirubin 0.6 mg/dL (0.3-1.0) 09/18/18 06:02 AST 14 U/L (13-39) 09/18/18 06:02 ALT 19 U/L (7-52) 09/18/18 06:02 Alkaline Phosphatase 100 U/L (34-104) 09/18/18 06:02 Creatine Kinase 97 U/L (30-223) 09/12/18 12:22 Troponin I < 0.01 ng/mL (0.01-0.05) L 09/12/18 12:22 Total Protein 6.4 gm/dL (6.0-8.3) 09/18/18 06:02 Albumin 3.1 gm/dL (4.2-5.5) L 09/18/18 06:02 Globulin 3.3 gm/dL 09/18/18 06:02 Albumin/Globulin Ratio 0.9 (1.0-1.8) L 09/18/18 06:02 Urine Source MIDSTREAM 09/12/18 03:15 Urine Color YELLOW 09/12/18 03:15 Urine Clarity CLEAR (CLEAR) 09/12/18 03:15 Urine pH 5.5 (4.6 - 8.0) 09/12/18 03:15 Ur Specific [place] 1.025 (1.005-1.030) 09/12/18 03:15 Urine Protein NEGATIVE mg/dL (NEGATIVE) 09/12/18 03:15 Urine Glucose (UA) NEGATIVE mg/dL (NEGATIVE) 09/12/18 03:15 Urine Ketones NEGATIVE mg/dL (NEGATIVE) 09/12/18 03:15 Urine Blood NEGATIVE (NEGATIVE) 09/12/18 03:15 Urine Nitrate NEGATIVE (NEGATIVE) 09/12/18 03:15 Urine Bilirubin NEGATIVE (NEGATIVE) 09/12/18 03:15 Urine Urobilinogen 0.2 E.U./dL (0.2 - 1.0) 09/12/18 03:15 Ur Leukocyte Esterase NEGATIVE (NEGATIVE) 09/12/18 03:15 - Physical Exam Vitals and I&O: Vital Signs Temp 97.8 F 09/18/18 08:53 Pulse 84 09/18/18 09:59 Resp 19 09/18/18 08:53 BP 131/72 09/18/18 09:59 Pulse Ox 93 09/18/18 08:53 Intake & Output 09/17/18 09/18/18 09/18/18 18:59 06:59 18:59 Intake Total 480 Output Total 500 850 Balance -20 -850 Weight (lbs) 74.389 kg 74.389 kg Intake: Oral 480 Output: Urine 500 850 Other: # Bowel Movements 0 Weight Source Bedscale Bedscale Active Medications: Current Medications Acetaminophen (Tylenol) 650 mg PO Q6H PRN PRN Reason: Pain Or Fever Above 101 Stop: 11/14/18 18:21 Last Admin: 09/17/18 16:01 Dose: 650 mg Acetaminophen/Hydrocodone Bitart ([place] 5mg/325mg) 1 tab PO Q4H PRN PRN Reason: MODERATE PAIN (LEVEL 4-6) Stop: 11/14/18 18:21 Amlodipine Besylate (Norvasc) 10 mg PO DAILY [facility] Stop: 11/12/18 08:59 Last Admin: 09/18/18 09:59 Dose: 10 mg Aripiprazole (Abilify) 5 mg PO DAILY [facility]; Protocol Stop: 11/12/18 08:59 Last Admin: 09/18/18 09:58 Dose: 5 mg Hydrochlorothiazide (Hctz) 25 mg PO DAILY [facility] Stop: 11/12/18 08:59 Last Admin: 09/18/18 09:58 Dose: 25 mg Dextrose/Sodium Chloride (D5-0.45ns) 1,000 mls @ 75 mls/hr IV .[id number] [facility] Stop: 11/13/18 18:59 Last Admin: 09/17/18 11:48 Dose: 75 mls/hr Morphine Sulfate (Morphine) 2 mg IVP Q4HR PRN PRN Reason: Pain (Severe) Stop: 11/14/18 22:28 Last Admin: 09/16/18 22:58 Dose: 2 mg Mupirocin (Bactroban Oint) 1 appl NS BID [facility] Stop: 09/19/18 17:01 Last Admin: 09/18/18 09:59 Dose: 1 appl Ondansetron HCl (Zofran) 4 mg IVP Q6H PRN PRN Reason: Nausea / Vomiting Stop: 11/14/18 18:21 Vitamin D (Vitamin D) 400 iu PO DAILY [facility] Stop: 11/12/18 08:59 Last Admin: 09/18/18 09:59 Dose: 400 iu General: no acute distress, well developed, well nourished HEENT: atraumatic, normocephalic, PERRLA Neck: supple, no thyromegaly Cardiovascular: S1S2, regular Lungs: clear to auscultation bilaterally, clear to percussion Abdomen: soft, no tender, no distended, no mass Extremities: no cyanosis, no clubbing, no edema Neurological: awake, alert, oriented - Procedures Procedures: Procedures Procedure Code Date INTRODUCE ADHESION BARRIER IN PERITON CAV, OPEN [id number] 09/12/18 REPAIR RIGHT INGUINAL REGION, OPEN APPROACH [id number] 09/12/18 SUPPLEMENT R INGUINAL REGION WITH SYNTH SUB, OPEN APPROACH [id number] 09/12/18 Infectious Disease Assmt/Plan - Assessment Assessment: 1. Scrotal swelling, most likely secondary to inguinal hernia. 2. Hypertension. 3. Incarcerated hernia. 4. Hypokalemia. Resolved 5. Azotemia, most likely due to dehydration. - Plan Plan: HErniorrhaphy was performed. may give augmentin 500mg po bid for 7 days. Dc planning. Nutritional Asmnt/Malnutr-PDOC - Dietary Evaluation Malnutrition Findings (Please click <Entered> for more info): Nutritional Asmnt/Malnutrition Start: 09/13/18 11: 32 Text: Status: Complete Freq: Protocol: Document 09/13/18 11:32 LCHENG (Rec: 09/13/18 11:40 LCHENG [email or web address]) Nutritional Asmnt/Malnutrition Patient General Information Nutritional Screening High Risk Diagnosis testicular swelling, hernia, dehydration Pertinent Medical Hx/Surgical Hx HTN, depression Subjective Information Pt seen sleeping in bed at time of visit. Current Diet Order/ Nutrition Support regular Pertinent Medications vit D Pertinent Labs 09/13 K 2.8, BUN 37, Cr 1.4 09/12 K 3.0, BUN 35, Cr 1.5, Glucose 111 Nutritional Hx/Data Height 1.63 m Height (Calculated Centimeters) 162.6 Current Weight (lbs) 73.936 kg Weight (Calculated Kilograms) 73.9 Weight (Calculated Grams) 33313.6 [place] Body Weight 130 Body Mass Index (BMI) 27.9 Weight Status Overweight GI Symptoms GI Symptoms None Last BM not indicated Difficult in: None Skin Integrity/Comment: reddened edema to scrotum, reddened scar to left leg, scab to left elbow Estimated Nutritional Goals BEE in Kcals: Using Current wt Calories/Kcals/Kg 23-27 Kcals Calculated 8789-7376 Protein: Using Current wt Protein g/k.8 Protein Calculated 59 Fluid: ml 1702-1998ml (1ml/kcal) Nutritional Problem 1. Problem Problem altered nutrition related labs Etiology electrolytes imbalance Signs/Symptoms: K 2.8 Malnutrition Alert Is there a minimum of two criteria No selected? Query Text:Check all the applicable criteria. A minimum of two criteria are recommended for diagnosis of either severe or non-severe malnutrition. Malnutrition Related to Morbid Obesity Malnutrition related to morbid obesity No Intervention/Recommendation Comments 1. Continue with regular diet as ordered. MD to replace electrolyts as needed. 2. Monitor PO intake, wt, labs and skin integrity 3. F/U as moderate risk in 3-5 days Expected Outcomes/Goals Expected Outcomes/Goals 1. PO intake to meet at least 75% of nutritional needs. 2. Wt stability, skin to remain intact, labs to approach WNL.
[2018-09-18] MEDS: D5-0.45NS 1,000 ML IV SCH (13:57)
[2018-09-18] MEDS ORDERED: Amoxicillin/Clavulanate 500/125 Tab PO SCH (17:00)
--- NOTE | 2018-09-19 15:12 | Pathology Report ---
[id number] Collection Date: 09/15/2018 Surgeon: Dr. Jenise Rutherford Specimen Description: Hernia sac. Gross Description: Received in formalin is a 5 x 4 x 0.3 cm portion of [place]-staples fibromembranous connective tissue with a glistening hernia surface on one side. Sectioning shows mostly fibrous tissue with no focal lesions. Rehab Tech sections are submitted in one cassette. Microscopic Description: The histologic sections show benign fibromembranous connective tissue. Diagnosis: Consistent with hernia sac, right inguinal hernia. [facility]# [id number]
== END 2018-09-18 17:47 | DRG 351 ==
LOC: ER 11:45 → TELE 13:45
PROVIDERS: ADMIT Internal Medicine; ATTEND Internal Medicine
PROC: 0YU50JZ Supplement Right Inguinal Region with Synthetic Substitute, Open Approach (ICD-10-PCS; principal; 2018-09-15)
DX: K40.30 Unilateral inguinal hernia, with obstruction, without gangrene, not specified as recurrent (principal); E44.1 Mild protein-calorie malnutrition; N50.89 Other specified disorders of the male genital organs; K46.9 Unspecified abdominal hernia without obstruction or gangrene; E86.0 Dehydration; E87.6 Hypokalemia; N18.2 Chronic kidney disease, stage 2 (mild); K40.90 Unilateral inguinal hernia, without obstruction or gangrene, not specified as recurrent; N49.2 Inflammatory disorders of scrotum; I12.9 Hypertensive chronic kidney disease with stage 1 through stage 4 chronic kidney disease, or unspecified chronic kidney disease; Z68.28 Body mass index [BMI] 28.0-28.9, adult
CPT/HCPCS: 36415-UA; 71045-TC; 76870-TC; 80048-TC; 80053-TC; 81003-TC; 82550-TC; 82948-90; 83605; 83735-TC; 84484-TC; 85025-TC; 85610-TC; 85730-TC; 93005; 94640; 94760; 96372; J0690; J2270; J2405; J2704; J2710; J3010; J3480; J7040; J7042; X6258; Z7610